=== PATIENT | male | born 1955 | race Caucasian/White ===

== ENCOUNTER 2019-06-09 07:47 | Inpatient (IN) ==
--- NOTE | 2019-06-09 07:54 | Emergency Department Note ---
Disposition Clinical Impression: Chest pain Qualifiers: Chest pain type: chest pain due to myocardial ischemia Ischemic chest pain type: unstable angina pectoris Qualified Code(s): I20.0 - Unstable angina CAD (coronary artery disease) Qualifiers: Coronary Disease-Associated Artery/Lesion type: [place] artery [place] vs. transplanted heart: [place] heart Associated angina: with unstable angina Qualified Code(s): I25.110 - Atherosclerotic heart disease of [place] coronary artery with unstable angina pectoris Disposition: Admitted As Inpatient Condition: Fair Time of Disposition: 07:07 General Adult HPI - General Chief complaint: ED Chest Pain Stated complaint: MOODY chest pain Time Seen by Provider: 06/09/19 07:51 - Related Data Home Medications Medication Instructions Recorded Confirmed Albuterol Sulfate [Proventil 2 puff IH Q4HR PRN 05/17/19 06/09/19 Inhaler] Aspirin [Lo-Dose Aspirin EC] 81 mg PO DAILY 05/17/19 06/09/19 Atorvastatin Calcium [Lipitor] 80 mg PO HS 05/17/19 06/09/19 BuPROPion XL (24 HR) [Wellbutrin 150 mg PO DAILY 05/17/19 06/09/19 XL] Citalopram Hydrobromide 40 mg PO DAILY 05/17/19 06/09/19 [Citalopram HBr] LORazepam [Lorazepam] 2 mg PO TID PRN 05/17/19 06/09/19 Previous Rx's Medication Instructions Recorded Docusate [Colace] 100 mg PO BID #60 capsule 05/17/19 Allergies Allergy/AdvReac Type Severity Reaction Status Date / Time amlodipine [From Norvasc] AdvReac Dizziness Verified 06/09/19 16:53 nitroglycerin AdvReac Hypotension Verified 06/09/19 16:53 Past Medical History - Past Medical History Medical history: Reports: myocardial infarction, other Surgical history: Reports: herniorrhaphy, other Psychiatric history: Reports: no psych history - Social History Smoking Status: Current every day smoker Smokeless Tobacco Status: No Alcohol use: Reports: none Drug use: Reports: none Course Vital Signs Temperature 97.5 F L 06/09/19 07:50 Pulse Rate 57 06/09/19 07:50 Respiratory Rate 18 06/09/19 07:50 Blood Pressure 97/75 06/09/19 07:50 O2 Sat by Pulse Oximetry 100 06/09/19 07:50 Temperature 98.6 F 06/10/19 03:29 Pulse Rate 65 06/10/19 03:29 Respiratory Rate 14 06/10/19 03:29 Blood Pressure 98/60 06/10/19 03:29 O2 Sat by Pulse Oximetry 97 06/10/19 03:29 Oxygen Delivery Oxygen Delivery Room Air Medical Decision Making - Lab Data Result diagrams: 06/10/19 02:32 06/10/19 02:32 Lab Results 06/09/19 06/09/19 06/09/19 Range/Units 08:07 08:07 08:07 WBC 7.4 (4.3-11.1) K/mcL RBC 4.71 (4.19-5.50) M/mcL Hgb 14.9 (12.9-16.9) g/dL Hct 44.2 (37.5-50.1) % MCV 93.8 (83.0-100.0) fL MCH 31.6 (28.0-33.3) pg MCHC 33.7 (31.6-35.5) g/dL RDW 12.9 (11.5-14.5) % Plt Count 229 (140-400) K/mcL MPV 9.2 L (9.4-12.4) fL Immature Gran % 0.3 (0-4) % Seg Neutrophils % 63.9 % Lymphocytes % 20.9 % Monocytes % 10.1 % Eosinophils % 4.3 % Basophils % 0.5 % Neutrophils # 4.7 (1.6-8.9) K/mcL Lymphocytes # 1.6 (0.6-4.6) K/mcL Monocytes # 0.8 (0.0-1.3) K/mcL Eosinophils # 0.3 (0.0-0.6) K/mcL Basophils # 0.0 (0.0-0.2) K/mcL PT (9.4-12.1) Seconds INR APTT 34.7 (26.0-36.0) Seconds Sodium 135 L (136-145) mEq/L Potassium 3.7 (3.5-5.1) mEq/L Chloride 106 (98-107) mEq/L Carbon Dioxide 26 (23-29) mEq/L BUN 10 (8-23) mg/dL Creatinine 0.86 (0.70-1.30) mg/dL Est GFR ( Amer) > 60 (> 60) Est GFR (Non-Af Amer) > 60 (> 60) BUN/Creatinine Ratio 12 (6-26) Glucose 89 (70-105) mg/dL Calculated Osmolality 279 L (280-300) Lactic Acid (0.5-2.2) mmol/L Calcium 9.0 (8.6-10.3) mg/dL Magnesium 2.2 (1.6-2.6) mg/dL Troponin I (< 0.04) ng/mL Lipase 22 (11-82) Units/L TSH (0.340-5.600) mcIU/mL Urine Color (Yellow) Urine Clarity (Clear) Urine pH (5.0-8.0) pH Units Ur Specific [place] (1.010-1.025) Urine Protein (Neg-Trace) mg/dL Urine Glucose (UA) (Normal) mg/dL Urine Ketones (Negative) mg/dL Urine Blood (Negative) Urine Nitrite (Negative) Urine Bilirubin (Negative) Urine Urobilinogen (Normal) mg/dL Ur Leukocyte Esterase (Negative) Urine Microscopic RBC (0-3) per hpf Urine Microscopic WBC (0-3) per hpf Ur Squamous Epith Cells (None-Few) per lpf Urine Bacteria (None-Few) per hpf Hyaline Casts (None-Few) per lpf Ur Culture Indicated? (NO) 06/09/19 06/09/19 06/09/19 Range/Units 08:07 08:07 08:07 WBC (4.3-11.1) K/mcL RBC (4.19-5.50) M/mcL Hgb (12.9-16.9) g/dL Hct (37.5-50.1) % MCV (83.0-100.0) fL MCH (28.0-33.3) pg MCHC (31.6-35.5) g/dL RDW (11.5-14.5) % Plt Count (140-400) K/mcL MPV (9.4-12.4) fL Immature Gran % (0-4) % Seg Neutrophils % % Lymphocytes % % Monocytes % % Eosinophils % % Basophils % % Neutrophils # (1.6-8.9) K/mcL Lymphocytes # (0.6-4.6) K/mcL Monocytes # (0.0-1.3) K/mcL Eosinophils # (0.0-0.6) K/mcL Basophils # (0.0-0.2) K/mcL PT 12.2 H (9.4-12.1) Seconds INR 1.1 APTT (26.0-36.0) Seconds Sodium (136-145) mEq/L Potassium (3.5-5.1) mEq/L Chloride (98-107) mEq/L Carbon Dioxide (23-29) mEq/L BUN (8-23) mg/dL Creatinine (0.70-1.30) mg/dL Est GFR ( Amer) (> 60) Est GFR (Non-Af Amer) (> 60) BUN/Creatinine Ratio (6-26) Glucose (70-105) mg/dL Calculated Osmolality (280-300) Lactic Acid 1.8 (0.5-2.2) mmol/L Calcium (8.6-10.3) mg/dL Magnesium (1.6-2.6) mg/dL Troponin I < 0.03 (< 0.04) ng/mL Lipase (11-82) Units/L TSH 4.464 (0.340-5.600) mcIU/mL Urine Color (Yellow) Urine Clarity (Clear) Urine pH (5.0-8.0) pH Units Ur Specific [place] (1.010-1.025) Urine Protein (Neg-Trace) mg/dL Urine Glucose (UA) (Normal) mg/dL Urine Ketones (Negative) mg/dL Urine Blood (Negative) Urine Nitrite (Negative) Urine Bilirubin (Negative) Urine Urobilinogen (Normal) mg/dL Ur Leukocyte Esterase (Negative) Urine Microscopic RBC (0-3) per hpf Urine Microscopic WBC (0-3) per hpf Ur Squamous Epith Cells (None-Few) per lpf Urine Bacteria (None-Few) per hpf Hyaline Casts (None-Few) per lpf Ur Culture Indicated? (NO) 06/09/19 Range/Units 09:55 WBC (4.3-11.1) K/mcL RBC (4.19-5.50) M/mcL Hgb (12.9-16.9) g/dL Hct (37.5-50.1) % MCV (83.0-100.0) fL MCH (28.0-33.3) pg MCHC (31.6-35.5) g/dL RDW (11.5-14.5) % Plt Count (140-400) K/mcL MPV (9.4-12.4) fL Immature Gran % (0-4) % Seg Neutrophils % % Lymphocytes % % Monocytes % % Eosinophils % % Basophils % % Neutrophils # (1.6-8.9) K/mcL Lymphocytes # (0.6-4.6) K/mcL Monocytes # (0.0-1.3) K/mcL Eosinophils # (0.0-0.6) K/mcL Basophils # (0.0-0.2) K/mcL PT (9.4-12.1) Seconds INR APTT (26.0-36.0) Seconds Sodium (136-145) mEq/L Potassium (3.5-5.1) mEq/L Chloride (98-107) mEq/L Carbon Dioxide (23-29) mEq/L BUN (8-23) mg/dL Creatinine (0.70-1.30) mg/dL Est GFR ( Amer) (> 60) Est GFR (Non-Af Amer) (> 60) BUN/Creatinine Ratio (6-26) Glucose (70-105) mg/dL Calculated Osmolality (280-300) Lactic Acid (0.5-2.2) mmol/L Calcium (8.6-10.3) mg/dL Magnesium (1.6-2.6) mg/dL Troponin I (< 0.04) ng/mL Lipase (11-82) Units/L TSH (0.340-5.600) mcIU/mL Urine Color Dark Yellow (Yellow) Urine Clarity Cloudy A (Clear) Urine pH 8.0 (5.0-8.0) pH Units Ur Specific [place] 1.015 (1.010-1.025) Urine Protein 30 H (Neg-Trace) mg/dL Urine Glucose (UA) Normal (Normal) mg/dL Urine Ketones Negative (Negative) mg/dL Urine Blood Large H (Negative) Urine Nitrite Negative (Negative) Urine Bilirubin Negative (Negative) Urine Urobilinogen Normal (Normal) mg/dL Ur Leukocyte Esterase Moderate H (Negative) Urine Microscopic RBC TNTC H (0-3) per hpf Urine Microscopic WBC 50-100 H (0-3) per hpf Ur Squamous Epith Cells Many H (None-Few) per lpf Urine Bacteria None Seen (None-Few) per hpf Hyaline Casts None Seen (None-Few) per lpf Ur Culture Indicated? YES A (NO) Attestation Statement - Attestation Attestation: I reviewed the residents documentation and agree with the residents assessment and plan of care. I have personally had face to face time with the patient. (Brief History, Brief Exam, and MDM) I personally supervised and was present for the bender/critical portions of the following procedures completed by the resident: (add procedures performed here). [id number] time provided Patient arrives by EMS complaining of chest pain. He recently stopped his Plav ix due to prostate instrumentation. Patient has an extensive cardiac history including CABG and stents. He appears distress on exam. I attest to supervising the resident physician's interpretation of ECG
--- NOTE | 2019-06-09 07:54 | Emergency Department Note ---
Disposition Clinical Impression: Chest pain Qualifiers: Chest pain type: chest pain due to myocardial ischemia Ischemic chest pain type: unstable angina pectoris Qualified Code(s): I20.0 - Unstable angina CAD (coronary artery disease) Qualifiers: Coronary Disease-Associated Artery/Lesion type: unspecified vessel or lesion type [place] vs. transplanted heart: [place] heart Associated angina: with unstable angina Qualified Code(s): I25.110 - Atherosclerotic heart disease of [place] coronary artery with unstable angina pectoris Disposition: Admitted As Inpatient Condition: Fair Forms: ED Satisfaction Letter Time of Disposition: 09:36 General Adult HPI - General Chief complaint: ED Chest Pain Stated complaint: MOODY chest pain Time Seen by Provider: 06/09/19 07:51 Nursing Notes Reviewed: Yes Vital Signs Reviewed: Yes - History of Present Illness HPI Narrative: 64-year-old male with history of CABG, recent prostatic surgery who presents the emergency department with complaints of chest pain, shortness of breath which started this morning. The patient states it was sudden onset while he was driving. He apparently took 2 nitroglycerin and this significantly improved his pain. Pain has resumed his chest. He states that it feels like a dullness in his lower chest and upper abdomen, similar to his previous episodes of [place] with the exception that this time it is radiating into bilateral arms. Patient denies any nausea, vomiting, diarrhea, back pain, peripheral edema. He has had issues with hematuria since his prostatic surgery and was told he should hold off on taking his Plavix by his urologist but is unsure if this is approved by his external relations manager. He is therefore been off his Plavix for 2-3 weeks. - Related Data Home Medications Medication Instructions Recorded Confirmed Albuterol Sulfate [Proventil 2 puff IH Q4HR PRN 05/17/19 06/09/19 Inhaler] Aspirin [Lo-Dose Aspirin EC] 81 mg PO DAILY 05/17/19 06/09/19 Atorvastatin Calcium [Lipitor] 80 mg PO HS 05/17/19 06/09/19 BuPROPion XL (24 HR) [Wellbutrin 150 mg PO DAILY 05/17/19 06/09/19 XL] Citalopram Hydrobromide 40 mg PO DAILY 05/17/19 06/09/19 [Citalopram HBr] LORazepam [Lorazepam] 2 mg PO TID PRN 05/17/19 06/09/19 Previous Rx's Medication Instructions Recorded Docusate [Colace] 100 mg PO BID #60 capsule 05/17/19 Allergies Allergy/AdvReac Type Severity Reaction Status Date / Time amlodipine [From [facility]] Allergy Dizziness Unverified 06/09/19 07:58 nitroglycerin AdvReac Hypotension Verified 06/09/19 07:58 Review of Systems: ROS per history of present illness, all other systems reviewed and negative or normal. All systems ED: reviewed and negative except as stated. Review of Systems: As Per HPI Past Medical History - Past Medical History Medical history: Reports: myocardial infarction, other Surgical history: Reports: herniorrhaphy, other Psychiatric history: Reports: no psych history - Social History Smoking Status: Current every day smoker Smokeless Tobacco Status: No Alcohol use: Reports: none Drug use: Reports: none Physical Exam General: Conversant. No apparent distress. Follow commands. Appears stated age. Neck: No JVD. Trachea midline. Neck supple. Eyes: PERRL. No scleral icterus. HENT: Normocephalic and atraumatic. Moist mucus membranes. Cardiovascular: Regular rate and rhythm. Normal S1 and S2. No murmurs appreci ated. Normal capillary refill. Extremities well perfused with 2+ distal pulses bilaterally. No edema. Pulmonary: Normal and equal breath sounds bilaterally, anteriorly and posteriorly. No wheezes, rales, or rhonchi. Not in respiratory distress. Speaks in full sentences. Abdomen: Soft, nondistended, and tontender. No bruits or masses. No guarding. Neuro: Alert and oriented x3. No slurred speech. No focal deficits noted. Skin: No rashes noted on visualized skin. Musculoskeletal: No bony abnormalities visualized. Moves all extremities. Psych: Normal mood. Pleasant. Makes appropriate eye contact. Course - Consultations Consultation #1: Spoke with external relations manager, Dr. Joseph would recommend starting heparin drip unless urine shows significant hematuria given hemoglobin has remained stable since prostate surgery. Time: 09:53 Vital Signs Temperature 97.5 F L 06/09/19 07:50 Pulse Rate 57 06/09/19 07:50 Respiratory Rate 18 06/09/19 07:50 Blood Pressure 97/75 06/09/19 07:50 O2 Sat by Pulse Oximetry 100 06/09/19 07:50 Temperature 97.5 F L 06/09/19 07:50 Pulse Rate 59 06/09/19 09:40 Respiratory Rate 16 06/09/19 09:40 Blood Pressure 94/70 06/09/19 09:40 O2 Sat by Pulse Oximetry 98 06/09/19 09:40 Oxygen Delivery Oxygen Delivery Room Air Medical Decision Making - MDM Narrative Medical decision making narrative: 64-year-old male with history of CAD, CABG who presents the emergency department with complaints of chest pain and shortness of breath. On arrival patient is hypotensive with systolic in the 90s, this is following 2 nitroglycerin. We will not repeat nitroglycerin given the patient's hypotension. He is otherwise well-appearing, lungs are clear to auscultation. He is saturating at 98% on room air. Given extensive cardiac history we will obtain CBC, BMP, troponin, coags, chest x-ray, EKG and urinalysis. On laboratory evaluation shows no significant leukocytosis or anemia. BMP shows no significant electrolyte abnormalities. Troponin 1 was 0.03. Chest x-ray shows slight left sided atelectasis vs scarring but no appreciable focal consolidation. Vital signs are remained stable here in the emergency departmen t, does remain borderline hypotensive but will continue to resuscitate with fluids. He has been unable to urinate but we will provide a sample to ensure there is no urinary tract infection. Given the patient has recently stopped taking Plavix and has significant cardiac history to believe he warrants inpatient admission for further cardiac evaluation. Discussed case with on-call hospitalist Dr. Price who agrees with plan for admission and accepts the patient to the inpatient service. She requests consultation with external relations manager prior to admission given he has recently been off plavix. Patient agrees with and understands course of treatment plan including plan for admission. All questions answered. - Medical Records Medical records reviewed: Yes I reviewed the patient's medical records. - Lab Data Lab results reviewed: Yes I reviewed the patient's lab results. Result diagrams: 06/09/19 08:07 06/09/19 08:07 Lab Results 06/09/19 06/09/19 06/09/19 Range/Units 08:07 08:07 08:07 WBC 7.4 (4.3-11.1) K/mcL RBC 4.71 (4.19-5.50) M/mcL Hgb 14.9 (12.9-16.9) g/dL Hct 44.2 (37.5-50.1) % MCV 93.8 (83.0-100.0) fL MCH 31.6 (28.0-33.3) pg MCHC 33.7 (31.6-35.5) g/dL RDW 12.9 (11.5-14.5) % Plt Count 229 (140-400) K/mcL MPV 9.2 L (9.4-12.4) fL Immature Gran % 0.3 (0-4) % Seg Neutrophils % 63.9 % Lymphocytes % 20.9 % Monocytes % 10.1 % Eosinophils % 4.3 % Basophils % 0.5 % Neutrophils # 4.7 (1.6-8.9) K/mcL Lymphocytes # 1.6 (0.6-4.6) K/mcL Monocytes # 0.8 (0.0-1.3) K/mcL Eosinophils # 0.3 (0.0-0.6) K/mcL Basophils # 0.0 (0.0-0.2) K/mcL PT (9.4-12.1) Seconds INR APTT 34.7 (26.0-36.0) Seconds Sodium 135 L (136-145) mEq/L Potassium 3.7 (3.5-5.1) mEq/L Chloride 106 (98-107) mEq/L Carbon Dioxide 26 (23-29) mEq/L BUN 10 (8-23) mg/dL Creatinine 0.86 (0.70-1.30) mg/dL Est GFR ( Amer) > 60 (> 60) Est GFR (Non-Af Amer) > 60 (> 60) BUN/Creatinine Ratio 12 (6-26) Glucose 89 (70-105) mg/dL Calculated Osmolality 279 L (280-300) Lactic Acid (0.5-2.2) mmol/L Calcium 9.0 (8.6-10.3) mg/dL Magnesium 2.2 (1.6-2.6) mg/dL Troponin I (< 0.04) ng/mL Lipase 22 (11-82) Units/L TSH (0.340-5.600) mcIU/mL 06/09/19 06/09/19 06/09/19 Range/Units 08:07 08:07 08:07 WBC (4.3-11.1) K/mcL RBC (4.19-5.50) M/mcL Hgb (12.9-16.9) g/dL Hct (37.5-50.1) % MCV (83.0-100.0) fL MCH (28.0-33.3) pg MCHC (31.6-35.5) g/dL RDW (11.5-14.5) % Plt Count (140-400) K/mcL MPV (9.4-12.4) fL Immature Gran % (0-4) % Seg Neutrophils % % Lymphocytes % % Monocytes % % Eosinophils % % Basophils % % Neutrophils # (1.6-8.9) K/mcL Lymphocytes # (0.6-4.6) K/mcL Monocytes # (0.0-1.3) K/mcL Eosinophils # (0.0-0.6) K/mcL Basophils # (0.0-0.2) K/mcL PT 12.2 H (9.4-12.1) Seconds INR 1.1 APTT (26.0-36.0) Seconds Sodium (136-145) mEq/L Potassium (3.5-5.1) mEq/L Chloride (98-107) mEq/L Carbon Dioxide (23-29) mEq/L BUN (8-23) mg/dL Creatinine (0.70-1.30) mg/dL Est GFR ( Amer) (> 60) Est GFR (Non-Af Amer) (> 60) BUN/Creatinine Ratio (6-26) Glucose (70-105) mg/dL Calculated Osmolality (280-300) Lactic Acid 1.8 (0.5-2.2) mmol/L Calcium (8.6-10.3) mg/dL Magnesium (1.6-2.6) mg/dL Troponin I < 0.03 (< 0.04) ng/mL Lipase (11-82) Units/L TSH 4.464 (0.340-5.600) mcIU/mL - Radiology Data Radiology results reviewed: Yes I reviewed the patient's radiology results. Chest X-Ray 06/09/19 07:51 IMPRESSION: Subsegmental atelectasis left lower lobe versus scarring. D/ / 06/09/2019 09:04:03 Jose Tinoco MD / Shelly Yañez Interpreting Provider: Jose Tinoco MD - EKG Data EKG #1 EKG attestation: Yes I reviewed and interpreted this EKG. EKG results narrative: Normal sinus rhythm rate of 56. Normal axis. Flat and T waves in aVR, aVL, aVF. Normal intervals. No acute ST or T-wave abnormalities. When compared w ith prior from 03/30/19 there are no significant changes.
[2019-06-09] MEDS ORDERED: 0.9 % Sodium Chloride 1,000 ML IVC STA ×2 (07:58→09:25)
[2019-06-09] MEDS ORDERED: *HR* FentaNYL (PF) 100 MCG/2 ML VIAL IVP ONE (07:59)
[2019-06-09 08:20] LABS: White Blood Count 7.4 K/mcL (4.3-11.1)
[2019-06-09 08:21] LABS: Basophils % 0.5 %; Eosinophils # 0.3 K/mcL (0.0-0.6); Eosinophils % 4.3 %; Hematocrit 44.2 % (37.5-50.1); Hemoglobin 14.9 g/dL (12.9-16.9); Immature Granulocytes % 0.3 % (0-4); Lymphocytes # 1.6 K/mcL (0.6-4.6); Lymphocytes % 20.9 %; Mean Corpuscular HGB Conc 33.7 g/dL (31.6-35.5); Mean Corpuscular Hemoglobin 31.6 pg (28.0-33.3); Mean Corpuscular Volume 93.8 fL (83.0-100.0); Mean Platelet Volume 9.2 fL (9.4-12.4); Monocytes # 0.8 K/mcL (0.0-1.3); Monocytes % 10.1 %; Neutrophils # 4.7 K/mcL (1.6-8.9); Platelet Count 229 K/mcL (140-400); Red Blood Count 4.71 M/mcL (4.19-5.50); Red Cell Distribution Width 12.9 % (11.5-14.5); Segmented Neutrophils % 63.9 %
[2019-06-09 08:30] LABS: INR 1.1; Prothrombin Time 12.2 Seconds (9.4-12.1)
[2019-06-09 08:40] LABS: BUN/Creatinine Ratio 12 (6-26); Blood Urea Nitrogen 10 mg/dL (8-23); Carbon Dioxide 26 mEq/L (23-29); Chloride 106 mEq/L (98-107); Glucose 89 mg/dL (70-105); Lipase 22 Units/L (11-82); Magnesium 2.2 mg/dL (1.6-2.6); Osmolality,Calculated 279 (280-300); Potassium 3.7 mEq/L (3.5-5.1); Sodium 135 mEq/L (136-145); eGFR For African Americans > 60 (> 60); eGFR For Non-African Americans > 60 (> 60)
[2019-06-09 08:43] LABS: Troponin I < 0.03 ng/mL (< 0.04)
[2019-06-09 08:57] LABS: Thyroid Stimulating Hormone 4.464 mcIU/mL (0.340-5.600)
[2019-06-09 10:06] LABS: Bilirubin,Urine Negative (Negative); Blood,Urine Large (Negative); Clarity,Urine Cloudy (Clear); Color,Urine Dark Yellow (Yellow); Glucose,Urine (UA) Normal (Normal); Ketones,Urine Negative (Negative); Leukocyte Esterase,Urine Moderate (Negative); Nitrite,Urine Negative (Negative); Protein,Urine 30 mg/dL (Neg-Trace); Specific Gravity,Urine 1.015 (1.010-1.025); Urobilinogen,Urine Normal (Normal)
[2019-06-09 10:08] LABS: Bacteria,Urine None Seen per hpf (None-Few); Hyaline Casts,Urine None Seen per lpf (None-Few); RBC,Urine TNTC per hpf (0-3); Squamous Epithelial Cell,Urine Many per lpf (None-Few); WBC,Urine 50-100 per hpf (0-3)
[2019-06-09] MEDS ORDERED: Naloxone 0.4 MG/ML INJ IVP PRN (10:59)
[2019-06-09] MEDS ORDERED: Ondansetron 4 MG/2 ML VIAL IVP PRN (10:59)
[2019-06-09] MEDS ORDERED: Acetaminophen 325 MG TABLET PO PRN (10:59)
--- NOTE | 2019-06-09 13:20 | Cardiology Consult Note ---
<Melina Swift Josesito - Last Filed: 06/09/19 13:33> Date of Encounter: 06/09/19 Time of Encounter: 13:00 Assessment and Plan (1) Chest pain Current Visit: Yes Status: Acute Patient presents with symptoms concerning for unstable angina. Initial troponin negative. No acute ECG findings. Pain free upon exam. Significant cardiac hx including 3v CABG and reports 12 stents since bypass. Last LHC 2-3 years ago. Recent abnormal stress test (equivocal): small size, moderate intensity reversible apical lateral defect. Request records from [facility]--prior LHC. Continue to cycle troponin, ECG. Continue asa. Will restart plavix now and monitor H/H given hematuria. Given chest pain and recent abnormal stress test would recommend LHC. Recommend Urology consult prior d/t hematuria. NPO after MN. Will continue to follow. Qualifiers: Chest pain type: chest pain due to myocardial ischemia Ischemic chest pain type: unstable angina pectoris Qualified Code(s): I20.0 - Unstable angina (2) CAD (coronary artery disease) Current Visit: Yes Status: Acute Hx of 3vCABG in 2001. Reports 12 stents s/p bypass surgery. Had previously followed with Dr. Hsu at [facility]. Plan as above. Qualifiers: Coronary Disease-Associated Artery/Lesion type: [place] artery Circle vs. transplanted heart: [place] heart Associated angina: with unstable angina Qualified Code(s): I25.110 - Atherosclerotic heart disease of [place] coronary artery with unstable angina pectoris (3) Hematuria Current Visit: Yes Status: Acute Hematuria s/p TURP on 05/17 despite holding DAPT (asa + plavix). H/H normal. UA demonstrates large amount of blood. Given need for possible LHC and DAPT, recommend Urology consult. Qualifiers: Hematuria type: unspecified type Qualified Code(s): R31.9 - Hematuria, unspecified Discussion w patient/family: The assessment and plan as outlined above was discussed with the patient and/or family members who expressed understanding and agreement. All questions were answered. Thank you for involving us in the care of your patient. Please call with any questions. The patient will be discussed and reviewed with Dr. Joseph; changes to be made accordingly. History of Present Illness Consult date: 06/09/19 Requesting physician: Yefri Farmer Consult reason: Chest pain Chief complaint: chest pain History of present illness: Mr. Garcia is a 64 year old male with PMHx significant of CAD s/p 3vCABG s/p PCI, HTN, and recent TURP on 05/17 who presented to the ED with complaints of chest pain. He reports chest discomfort started today while driving; chest discomfort described as pressure/heaviness that radiates to left neck and down bilateral arms. Associated symptoms included fatigue. He states he took x2 NTG tabs which improved pain; took a baby aspirin and then called EMS. EMS administered additional NTG which resolved pain. Troponin negative. No acute ST/T wave changes noted on ECG. Of note, recently stopped asa/plavix for TURP, resumed after surgery and developed hematuria, he then stopped medications again. Upon exam today, he reports continued hematuria. Previously followed with Dr. Hsu at [facility]. Past Med Surg Social Fam HX - Past Medical History Attestation: Yes The following information was validated with the patient. Source: patient Medical history: coronary artery disease, hyperlipidemia, hypertension, myocardial infarction, other Psychiatric history: anxiety, depression - Past Surgical History Surgical History: appendectomy, coronary bypass (CABG), vasectomy Additional surgical history: 12 cardiac stents, left foot - Social History Smoking Status: Former smoker Smokeless Tobacco Status: No Alcohol use: none Drug use: none - Family History Mother Age: 86 Living Status: Still Living Hx Family Cardiac Disorders: Yes (a-fib) Hx Family Neurologic Disorders: Yes (Alzheimers) Father Living Status: Age at : 42 Cause of : heart attack Hx Family Cardiac Disorders: Yes Medications and Allergies Albuterol Sulfate [Proventil Inhaler] 2 puff IH Q4HR PRN 05/17/19 [History] Aspirin [Lo-Dose Aspirin EC] 81 mg PO DAILY 05/17/19 [History] Atorvastatin Calcium [Lipitor] 80 mg PO HS 05/17/19 [History] BuPROPion XL (24 HR) [Wellbutrin XL] 150 mg PO DAILY 05/17/19 [History] Citalopram Hydrobromide [Citalopram HBr] 40 mg PO DAILY 05/17/19 [History] Docusate [Colace] 100 mg PO BID #60 capsule 05/17/19 [Rx] LORazepam [Lorazepam] 2 mg PO TID PRN 05/17/19 [History] Allergy/AdvReac Type Severity Reaction Status Date / Time amlodipine [From [facility]] AdvReac Dizziness Verified 06/09/19 16:53 nitroglycerin AdvReac Hypotension Verified 06/09/19 16:53 All Systems Review: The remainder of the systems were reviewed and are negative - Cardiovascular Cardiovascular: as per HPI Physical Examination Vital Signs, Last 4 Hours Temp Pulse Resp BP Pulse Ox 06/09/19 11:21 97.9 F 53 16 111/68 95 06/09/19 10:55 16 100 06/09/19 09:40 59 16 94/70 98 General: Conversant, No Apparent Distress HEENT: Atraumatic, Normocephaly, Mucus Membranes Moist Neck: No JVD, Normal carotid pulses Cardiac: Reg Rate and Rhythm, Normal S1 and S2, No Murmur Lungs: Normal Breath Sounds, No Wheeze, Rales, Rhonchi Neuro: Alert and responsive, No focal deficits noted Abdomen: Soft, Non-Tender Skin: No rashes noted on visualized skin Musculoskeletal: No Chest Wall Tenderness Extremities: No Clubbing, No Cyanosis, No Edema, Normal Pulses Results 06/09/19 08:07 06/09/19 08:07 Lab Results 06/09/19 06/09/19 06/09/19 08:07 08:07 08:07 WBC 7.4 Hgb 14.9 Hct 44.2 Plt Count 229 INR APTT 34.7 Sodium 135 L Potassium 3.7 Chloride 106 Carbon Dioxide 26 BUN 10 Creatinine 0.86 Glucose 89 Calcium 9.0 Magnesium 2.2 Troponin I Lipase 22 TSH 06/09/19 06/09/19 08:07 08:07 WBC Hgb Hct Plt Count INR 1.1 APTT Sodium Potassium Chloride Carbon Dioxide BUN Creatinine Glucose Calcium Magnesium Troponin I < 0.03 Lipase TSH 4.464 Active Medications Acetaminophen (Tylenol) 650 mg PO Q6HR PRN PRN Reason: Mild Pain/Fever Stop: 12/09/19 11:00 Hydrocodone Bitart/Acetaminophen ([place] 5-325 Mg) 1 tab PO Q6HR PRN PRN Reason: Moderate Pain Stop: 12/09/19 11:00 Albuterol Sulfate (Proventil Inhaler) 2 puff IH Q4HR PRN PRN Reason: Shortness Of Breath Stop: 12/09/19 11:01 Aspirin (Aspirin Ec) 81 mg PO DAILY [facility] Stop: 12/10/19 09:01 Atorvastatin Calcium (Lipitor) 80 mg PO HS [facility] Stop: 12/09/19 21:01 Bupropion HCl (Wellbutrin Xl) 150 mg PO DAILY [facility] Stop: 12/10/19 09:01 Citalopram Hydrobromide (Celexa) 40 mg PO DAILY [facility] Stop: 12/10/19 09:01 Clopidogrel Bisulfate (Plavix) 75 mg PO DAILY [facility] Stop: 12/09/19 14:01 Docusate Sodium (Colace) 100 mg PO BID PRN PRN Reason: Constipation Stop: 12/09/19 21:01 Lorazepam (Ativan) 2 mg PO TID PRN PRN Reason: Anxiety Naloxone HCl (Narcan) 0.4 mg IVP Q2MPRN PRN PRN Reason: SEE COMMENTS Stop: 12/09/19 11:00 Ondansetron HCl (Zofran) 4 mg IVP Q8HR PRN PRN Reason: Nausea And Vomiting Stop: 12/09/19 11:00 - Imaging and Cardiology Stress Test: report reviewed Echo: pending - EKG Interpretation EKG results cardiology: personally reviewed Consult Discharge Plan - Plan Referrals: Gerardo Vasquez MD [Primary Care Provider] - <Rozina Joseph - Last Filed: 06/09/19 22:21> Date of Encounter: 06/09/19 - Attending Attestation Patient was seen and evaluated independently by me. Findings, assessment and plan were discussed at length with patient, questions answered. Agree with nurse practitioner's/resident's documentation. Addition as follows, 64yoCM ho CABG, last PCI>1 yr, HTN, BPH. P/w chest pain lasting >30 mins resolved after NTG SL x3. DAPT held 2 wks due to hematuria 1 wk after Green light photo vaporization of prostate. ECG SR, NS STT. Trop negx1. VSS, CTA, RR, no LE edema. A: Chest pain, suspected ACS, moderate risk Hematuria after recent BPH procedure, Hb relatively stable CABG and PCI>1 yr, off DAPT 2 wks P: resume ASA and plavix cycle trop urology consult for heparin and DAPT, if no objection, start heparin drip possible [facility] am Rozina Joseph MD, PhD Assessment and Plan Discussion w patient/family: The assessment and plan as outlined above was discussed with the patient and/or family members who expressed understanding and agreement. All questions were answered. Thank you for involving us in the care of your patient. Please call with any questions. History of Present Illness History of present illness: Mr. Garcia is a 64 year old male All Systems Review: The remainder of the systems were reviewed and are negative Physical Examination Vital Signs, Last 4 Hours Temp Pulse Resp BP Pulse Ox 06/09/19 19:25 98.0 F 57 16 105/61 95 Results 06/09/19 18:23 06/09/19 08:07 Lab Results 06/09/19 06/09/19 06/09/19 08:07 08:07 08:07 WBC 7.4 Hgb 14.9 Hct 44.2 Plt Count 229 INR APTT 34.7 Sodium 135 L Potassium 3.7 Chloride 106 Carbon Dioxide 26 BUN 10 Creatinine 0.86 Glucose 89 Calcium 9.0 Magnesium 2.2 Troponin I Lipase 22 TSH 06/09/19 06/09/19 06/09/19 08:07 08:07 15:43 WBC Hgb Hct Plt Count INR 1.1 APTT Sodium Potassium Chloride Carbon Dioxide BUN Creatinine Glucose Calcium Magnesium Troponin I < 0.03 0.30 H* Lipase TSH 4.464 06/09/19 06/09/19 06/09/19 18:23 18:23 18:23 WBC 6.7 Hgb 14.0 Hct 41.9 Plt Count 214 INR 1.1 APTT 33.0 Sodium Potassium Chloride Carbon Dioxide BUN Creatinine Glucose Calcium Magnesium Troponin I Lipase TSH
--- NOTE | 2019-06-09 14:42 | Urology - Consult Note ---
<Mandy Mejias N - Last Filed: 06/09/19 14:39> Date of Encounter: 06/09/19 Time of Encounter: 14:00 - Assessment and Plan (1) Hematuria Current Visit: Yes Status: Acute Assessment and plan: Patient is a 64-year-old male who presents with hematuria following a greenlight PVP on 05/17/[address] Padron. Initially helped his anticoagulation preoperatively and resumed it postoperatively. Patient experienced recurrence of hematuria after resuming DAPT. Patient held anticoagulation after 05/28/2019, and urine is now clear. I explained to patient that he will likely resume anticoagulation per cardiology. He may continue to monitor his urine, and if gross hematuria returns, he may require an indwelling catheter. Urology will continue to follow. Qualifiers: Hematuria type: unspecified type Qualified Code(s): R31.9 - Hematuria, unspecified (2) Benign prostatic hyperplasia with lower urinary tract symptoms Current Visit: Yes Status: Acute Assessment and plan: Patient is a 64-year-old male who presents with BPH with LUTS. Patient is status post greenlight PVP on 05/17/2019. Patient's symptoms are as expected postoperatively. I will order a bladder scan in order to confirm adequate emptying. Qualifiers: Lower urinary tract symptom detail: urinary frequency Qualified Code(s): N40.1 - Benign prostatic hyperplasia with lower urinary tract symptoms; R35.0 - Frequency of micturition Urology CN:HPI Consult date: 06/09/19 Reason for consult Urology: Gross Hematuria (recent GreenLight PVP) Requesting physician: Rose Hart History of present illness: Patient is a 64-year-old male who presents status post greenlight photo vaporization of the prostate with Dr. Padron on 05/17/2019. Patient has a significant cardiac history including history of myocardial infarction, and he takes both Plavix and aspirin daily. Patient resumed anticoagulation posto peratively and experienced recurrence of hematuria. Patient called the urology office on 05/28/2019 stating hematuria had resolved after resuming anticoagulation. Patient was instructed to hold Plavix for 3 days. Patient continued to hold anticoagulation, and urine is now clear. Patient reports being off anticoagulation for approximately 2 weeks. Earlier this morning, while driving, patient experienced bilateral upper extremity pain radiating to the left lateral neck and substernal chest. Patient took 2 nitroglycerin without relief. Patient was given an additional nitroglycerin and aspirin by EMS staff and brought to the emergency department for further evaluation. Currently, patient is sitting upright in bed in no apparent distress, and he denies any chest pain, dyspnea, palpitations or weakness. Patient states he is voiding well without difficulty and feels as if he is emptying his bladder sufficiently. Patient does admit to continued urgency, frequency and nocturia. Patient states urine is now a transparent, dark yellow. Past Med Surg Social Fam HX - Past Medical History Medical history: coronary artery disease, hyperlipidemia, hypertension, myocardial infarction, other Psychiatric history: anxiety, depression - Past Surgical History Surgical History: appendectomy, coronary bypass (CABG), vasectomy Additional surgical history: 12 cardiac stents, left foot - Social History Smoking Status: Former smoker Smokeless Tobacco Status: No Alcohol use: none Drug use: none - Family History Mother Age: 86 Living Status: Still Living Hx Family Cardiac Disorders: Yes (a-fib) Hx Family Neurologic Disorders: Yes (Alzheimers) Father Living Status: Age at : 42 Cause of : heart attack Hx Family Cardiac Disorders: Yes Medications and Allergies Albuterol Sulfate [Proventil Inhaler] 2 puff IH Q4HR PRN 05/17/19 [History] Aspirin [Lo-Dose Aspirin EC] 81 mg PO DAILY 05/17/19 [History] Atorvastatin Calcium [Lipitor] 80 mg PO HS 05/17/19 [History] BuPROPion XL (24 HR) [Wellbutrin XL] 150 mg PO DAILY 05/17/19 [History] Citalopram Hydrobromide [Citalopram HBr] 40 mg PO DAILY 05/17/19 [History] Docusate [Colace] 100 mg PO BID #60 capsule 05/17/19 [Rx] LORazepam [Lorazepam] 2 mg PO TID PRN 05/17/19 [History] Allergy/AdvReac Type Severity Reaction Status Date / Time amlodipine [From [facility]] Allergy Dizziness Unverified 06/09/19 07:58 nitroglycerin AdvReac Hypotension Verified 06/09/19 07:58 Review of Systems - Constitutional no chills, no fatigue, no fever(s) - EENT Nose, mouth and throat: no dizziness, no headache(s) - Cardiovascular chest pain, diaphoresis, dyspnea, no palpitations - Respiratory dyspnea, no cough - Gastrointestinal nausea, no abdominal pain, no vomiting - Genitourinary nocturia, urinary frequency, urinary urgency, no change in urinary stream, no difficulty urinating, no dysuria, no flank pain, no hematuria, no urinary hesitancy, no urinary incontinence - Musculoskeletal no back pain, no muscle weakness - Integumentary no erythema, no rash - Neurological no confusion, no syncope - Psychiatric no anxiety, no confusion - Hematologic/Lymphatic no easy bleeding, no easy bruising - Allergic/Immunologic no throat swelling, no wheezing Exam Initial Vital Signs Temp Pulse Resp BP Pulse Ox 97.5 F L 57 18 97/75 100 06/09/19 07:50 06/09/19 07:50 06/09/19 07:50 06/09/19 07:50 06/09/19 07:50 - General physical appearance Present: no distress, no pain - Eyes Present: PERRL, normal ocular movement - ENT Present: no hearing loss, no congestion - Neck Present: no masses, trachea midline, no lymphadenopathy - Respiratory Present: normal respiratory effort - Cardiovascular Cardiovascular exam IM: RRR - Abdomen Abdomen: Present: soft, non tender. Absent: distended - Integumentary Present: no rash, no abnormal pigmentation - Neurologic Present: normal coordination - Musculoskeletal Present: other (normal posture ) Urology Results - Labs 06/09/19 08:07 06/09/19 08:07 Abnormal lab results MPV 9.2 fL (9.4-12.4) L 06/09/19 08:07 PT 12.2 Seconds (9.4-12.1) H 06/09/19 08:07 Sodium 135 mEq/L (136-145) L 06/09/19 08:07 Calculated Osmolality 279 (280-300) L 06/09/19 08:07 Urine Clarity Cloudy (Clear) A 06/09/19 09:55 Urine Protein 30 mg/dL (Neg-Trace) H 06/09/19 09:55 Urine Blood Large (Negative) H 06/09/19 09:55 Ur Leukocyte Esterase Moderate (Negative) H 06/09/19 09:55 Urine Microscopic RBC TNTC per hpf (0-3) H 06/09/19 09:55 Urine Microscopic WBC 50-100 per hpf (0-3) H 06/09/19 09:55 Ur Squamous Epith Cells Many per lpf (None-Few) H 06/09/19 09:55 Ur Culture Indicated? YES (NO) A 06/09/19 09:55 Diabetes panel 06/09/19 Range/Units 08:07 Sodium 135 L (136-145) mEq/L Potassium 3.7 (3.5-5.1) mEq/L Chloride 106 (98-107) mEq/L Carbon Dioxide 26 (23-29) mEq/L BUN 10 (8-23) mg/dL Creatinine 0.86 (0.70-1.30) mg/dL Glucose 89 (70-105) mg/dL Calcium 9.0 (8.6-10.3) mg/dL Thyroid panel 06/09/19 Range/Units 08:07 TSH 4.464 (0.340-5.600) mcIU/mL Calcium panel 06/09/19 Range/Units 08:07 Calcium 9.0 (8.6-10.3) mg/dL Pituitary panel 06/09/19 06/09/19 Range/Units 08:07 08:07 Sodium 135 L (136-145) mEq/L Potassium 3.7 (3.5-5.1) mEq/L Chloride 106 (98-107) mEq/L Carbon Dioxide 26 (23-29) mEq/L BUN 10 (8-23) mg/dL Creatinine 0.86 (0.70-1.30) mg/dL Glucose 89 (70-105) mg/dL Calcium 9.0 (8.6-10.3) mg/dL TSH 4.464 (0.340-5.600) mcIU/mL Adrenal panel 06/09/19 Range/Units 08:07 Sodium 135 L (136-145) mEq/L Potassium 3.7 (3.5-5.1) mEq/L Chloride 106 (98-107) mEq/L Carbon Dioxide 26 (23-29) mEq/L BUN 10 (8-23) mg/dL Creatinine 0.86 (0.70-1.30) mg/dL Glucose 89 (70-105) mg/dL Calcium 9.0 (8.6-10.3) mg/dL All other labs normal. Consult Discharge Plan - Plan Referrals: Gerardo Vasquez MD [Primary Care Provider] - <Humberto Bradshaw - Last Filed: 06/09/19 16:49> Date of Encounter: 06/09/19 Urology CN:SEVERIANO History of present illness: Patient was seen and examined in the family. I grabbed the plan as written by Mandy Mejias. At this time patient voiding well and states that his urine remains clear. We will be available if patient has to be started on significant anticoagulation as this could cause a worsening in his hematuria. Exam Initial Vital Signs Temp Pulse Resp BP Pulse Ox 97.5 F L 57 18 97/75 100 06/09/19 07:50 06/09/19 07:50 06/09/19 07:50 06/09/19 07:50 06/09/19 07:50 Urology Results - Labs 06/09/19 08:07 06/09/19 08:07 Abnormal lab results MPV 9.2 fL (9.4-12.4) L 06/09/19 08:07 PT 12.2 Seconds (9.4-12.1) H 06/09/19 08:07 Sodium 135 mEq/L (136-145) L 06/09/19 08:07 Calculated Osmolality 279 (280-300) L 06/09/19 08:07 Urine Clarity Cloudy (Clear) A 06/09/19 09:55 Urine Protein 30 mg/dL (Neg-Trace) H 06/09/19 09:55 Urine Blood Large (Negative) H 06/09/19 09:55 Ur Leukocyte Esterase Moderate (Negative) H 06/09/19 09:55 Urine Microscopic RBC TNTC per hpf (0-3) H 06/09/19 09:55 Urine Microscopic WBC 50-100 per hpf (0-3) H 06/09/19 09:55 Ur Squamous Epith Cells Many per lpf (None-Few) H 06/09/19 09:55 Ur Culture Indicated? YES (NO) A 06/09/19 09:55 Diabetes panel 06/09/19 Range/Units 08:07 Sodium 135 L (136-145) mEq/L Potassium 3.7 (3.5-5.1) mEq/L Chloride 106 (98-107) mEq/L Carbon Dioxide 26 (23-29) mEq/L BUN 10 (8-23) mg/dL Creatinine 0.86 (0.70-1.30) mg/dL Glucose 89 (70-105) mg/dL Calcium 9.0 (8.6-10.3) mg/dL Thyroid panel 06/09/19 Range/Units 08:07 TSH 4.464 (0.340-5.600) mcIU/mL Calcium panel 06/09/19 Range/Units 08:07 Calcium 9.0 (8.6-10.3) mg/dL Pituitary panel 06/09/19 06/09/19 Range/Units 08:07 08:07 Sodium 135 L (136-145) mEq/L Potassium 3.7 (3.5-5.1) mEq/L Chloride 106 (98-107) mEq/L Carbon Dioxide 26 (23-29) mEq/L BUN 10 (8-23) mg/dL Creatinine 0.86 (0.70-1.30) mg/dL Glucose 89 (70-105) mg/dL Calcium 9.0 (8.6-10.3) mg/dL TSH 4.464 (0.340-5.600) mcIU/mL Adrenal panel 06/09/19 Range/Units 08:07 Sodium 135 L (136-145) mEq/L Potassium 3.7 (3.5-5.1) mEq/L Chloride 106 (98-107) mEq/L Carbon Dioxide 26 (23-29) mEq/L BUN 10 (8-23) mg/dL Creatinine 0.86 (0.70-1.30) mg/dL Glucose 89 (70-105) mg/dL Calcium 9.0 (8.6-10.3) mg/dL All other labs normal.
[2019-06-09] MEDS: BuPROPion XL (24 HR) 150 MG TABLET PO SCH (14:58)
[2019-06-09] MEDS: *HR* LORazepam 1 MG TABLET PO PRN ×2 (14:58→21:50)
[2019-06-09] MEDS: Aspirin Enteric Coated 81 MG Tablet PO SCH (14:58)
--- NOTE | 2019-06-09 15:43 | Internal Med History&Physical ---
Date of Encounter: 06/09/19 Time of Encounter: 15:37 Internal Medicine - H&P: HPI Chief complaint: Chest pain Admitted From: Emergency Dept Plans for Post Hospital Care: Home History of present illness: Mr. Garcia is a 64 year old male with a known past medical history of hypertension, hyperlipidemia, anxiety, depression, former smoker, CAD s/p CABG and PCI and prostate problem who recently had Green light photo vaporization of prostate for BPH on 05/17/19 now he presented to ER with left chest wall pain. Patient stated he developed chest pain this morning while he was driving. His pain located at left chest wall region radiating to his left neck and left arm associated with some nausea. He also complained about feeling weak and lethargic. His chest pain improved with sublingual Nitro and baby aspirin. He denied any active chest pain now. In the ER his initial troponin was negative. His EKG did not show any acute ischemic changes. Off note resumed has been off off aspirin/Plavix since 05/28/19 since he developed hematuria after recent prostate greenlight PVP Past Med Surg Social Fam HX - Past Medical History Medical history: coronary artery disease, hyperlipidemia, hypertension, myocardial infarction, other Psychiatric history: anxiety, depression - Past Surgical History Surgical History: appendectomy, coronary bypass (CABG), vasectomy Additional surgical history: 12 cardiac stents, left foot - Social History Smoking Status: Former smoker Smokeless Tobacco Status: No Alcohol use: none Drug use: none - Family History Mother Age: 86 Living Status: Still Living Hx Family Cardiac Disorders: Yes (a-fib) Hx Family Neurologic Disorders: Yes (Alzheimers) Father Living Status: Age at : 42 Cause of : heart attack Hx Family Cardiac Disorders: Yes Internal Medicine - H&P: Meds Albuterol Sulfate [Proventil Inhaler] 2 puff IH Q4HR PRN 05/17/19 [History] Aspirin [Lo-Dose Aspirin EC] 81 mg PO DAILY 05/17/19 [History] Atorvastatin Calcium [Lipitor] 80 mg PO HS 05/17/19 [History] BuPROPion XL (24 HR) [Wellbutrin XL] 150 mg PO DAILY 05/17/19 [History] Citalopram Hydrobromide [Citalopram HBr] 40 mg PO DAILY 05/17/19 [History] Docusate [Colace] 100 mg PO BID #60 capsule 05/17/19 [Rx] LORazepam [Lorazepam] 2 mg PO TID PRN 05/17/19 [History] Allergy/AdvReac Type Severity Reaction Status Date / Time amlodipine [From [facility]] Allergy Dizziness Unverified 06/09/19 07:58 nitroglycerin AdvReac Hypotension Verified 06/09/19 07:58 All Systems PM: A 10-system review of systems was performed and is negative for pertinent findings except as documented above in the HPI. Review of systems: All the systems are reviewed everything is benign except the systems and symptoms I mentioned in the history of present illness - Constitutional Vitals: Temp Pulse Resp BP Pulse Ox 97.9 F 53 16 111/68 95 06/09/19 11:21 06/09/19 11:21 06/09/19 11:21 06/09/19 11:21 06/09/19 11:21 General appearance: Present: cooperative, A&O X 3, no acute distress Exam: a - Head Head exam: Present: atraumatic, normal inspection - Neck Neck exam general surgery: Present: supple - Respiratory Respiratory exam: Present: decreased breath sounds. Absent: rales, respiratory distress, rhonchi, wheezes - Cardiovascular Cardiovascular exam: Present: bradycardia, +S1, +S2. Absent: tachycardia - GI/Abdominal GI/Abdominal exam: Present: normal bowel sounds, soft. Absent: rebound, rigid, tenderness - Extremities Exam Extremities exam: Present: normal inspection. Absent: calf tenderness, pedal edema, tenderness - Back Exam Back exam: Absent: CVA tenderness (L), CVA tenderness (R) - Neurological Exam Neurological exam: Present: alert, oriented X3 - Psychiatric Psychiatric exam: Present: normal affect, normal mood - Skin Skin exam: Absent: rash Internal Med - H&P Results - Labs CBC & Chem 7: 06/09/19 08:07 06/09/19 08:07 Labs: Short CBC 06/09/19 Range/Units 08:07 WBC 7.4 (4.3-11.1) K/mcL Hgb 14.9 (12.9-16.9) g/dL Hct 44.2 (37.5-50.1) % Plt Count 229 (140-400) K/mcL Neutrophils # 4.7 (1.6-8.9) K/mcL BMP 08/07/19 08:07 Sodium 135 L Potassium 3.7 Chloride 106 Carbon Dioxide 26 BUN 10 Creatinine 0.86 Glucose 89 Calcium 9.0 Cardiac Enzymes 06/09/19 Range/Units 08:07 Troponin I < 0.03 (< 0.04) ng/mL Urine 06/09/19 Range/Units 09:55 Urine Color Dark Yellow (Yellow) Urine Clarity Cloudy A (Clear) Urine pH 8.0 (5.0-8.0) pH Units Ur Specific [place] 1.015 (1.010-1.025) Urine Protein 30 H (Neg-Trace) mg/dL Urine Glucose (UA) Normal (Normal) mg/dL - Impressions ITS Impressions Chest X-Ray 06/09/19 07:51 IMPRESSION: Subsegmental atelectasis left lower lobe versus scarring. D/ / 06/09/2019 09:04:03 Jose Tinoco MD / Shelly Yañez Interpreting Provider: Jose Tinoco MD - Assessment and Plan (1) Chest pain Current Visit: Yes Status: Acute Assessment and plan: Will admit the pt into Tele for observation Will place pt on credit processor check serial troponin so far negative troponin EKG reviewed - no acute ischemic changes Started pt back on ASA + Plavix No BB on board due to his chronic bradycardia Will check FLP in AM Card consulted possible LHC in AM NPO after mid night Qualifiers: Chest pain type: chest pain due to myocardial ischemia Ischemic chest pain type: unstable angina pectoris Qualified Code(s): I20.0 - Unstable angina (2) CAD (coronary artery disease) Current Visit: Yes Status: Acute Assessment and plan: resumed all home meds Qualifiers: Coronary Disease-Associated Artery/Lesion type: ili[place]na artery [place] vs. transplanted heart: iliamna heart Associated angina: with unstable angina Qualified Code(s): I25.110 - Atherosclerotic heart disease of [place] coronary artery with unstable angina pectoris (3) Benign prostatic hyperplasia with lower urinary tract symptoms Current Visit: Yes Status: Acute Assessment and plan: recent Green light PVP still has some hematuria consulted Urology - since he does need to be on DAPT appreciate urology recommendations cont close monitoring of H / H Qualifiers: Lower urinary tract symptom detail: urinary frequency Qualified Code(s): N40.1 - Benign prostatic hyperplasia with lower urinary tract symptoms; R35.0 - Frequency of micturition (4) Hematuria Current Visit: Yes Status: Acute Assessment and plan: plan as above Qualifiers: Hematuria type: unspecified type Qualified Code(s): R31.9 - Hematuria, unspecified (5) Anxiety Current Visit: Yes Status: Acute Assessment and plan: Continue home medications (6) HLD (hyperlipidemia) Current Visit: Yes Status: Acute Assessment and plan: On Lipitor 80 mg Qualifiers: Hyperlipidemia type: unspecified Qualified Code(s): E78.5 - Hyperlipidemia, unspecified - Time Spent With Patient Total time spent is greater than 50% in coordination of care (as documented) at patient's floor/unit and/or counseling patient:
[2019-06-09] MEDS ORDERED: *HR* Heparin 5,000 UNIT/ML VIAL IVP PRN ×2 (18:16)
[2019-06-09] MEDS ORDERED: *HR* Heparin 5,000 UNIT/ML VIAL IVP ONE (18:16)
--- NOTE | 2019-06-09 18:28 | Electrocardiograph Report ---
[facility] Test Date: 2019-06-09 Pat Name: Chucho Garcia Department: [id number] Room: 3B49 Gender: M Touch Up Worker: : 1955 Requested By: Gely Chong Order Number: [id number] Reading MD: Gianni Fox Measurements Intervals [place] Rate: 56 P: 78 RI: 165 QRS: 86 QRSD: 124 T: 43 QT: 460 QTc: 444 Interpretive Statements Sinus rhythm Nonspecific intraventricular conduction delay Electronically Signed On 06-09-2019 18:27:02 EDT by Gianni Fox
[2019-06-09] MEDS ORDERED: Heparin 25,000 UNIT/250 ML D5W 25,000 UNIT/250 ML IV.SOLN IVC SCH (18:30)
[2019-06-09 18:40] LABS: Hematocrit 41.9 % (37.5-50.1); Mean Corpuscular HGB Conc 33.4 g/dL (31.6-35.5); Mean Corpuscular Hemoglobin 31.4 pg (28.0-33.3); Mean Corpuscular Volume 93.9 fL (83.0-100.0); Mean Platelet Volume 9.2 fL (9.4-12.4); Platelet Count 214 K/mcL (140-400); Red Blood Count 4.46 M/mcL (4.19-5.50); Red Cell Distribution Width 12.8 % (11.5-14.5); White Blood Count 6.7 K/mcL (4.3-11.1)
[2019-06-09 18:53] LABS: Heparin anti-factor XA UFH 0.01 IU/mL (0.30-0.70); INR 1.1; Prothrombin Time 12.1 Seconds (9.4-12.1)
[2019-06-10 02:42] LABS: Hematocrit 40.9 % (37.5-50.1); Hemoglobin 13.9 g/dL (12.9-16.9); Platelet Count 211 K/mcL (140-400); Red Blood Count 4.35 M/mcL (4.19-5.50); Red Cell Distribution Width 12.8 % (11.5-14.5); White Blood Count 7.2 K/mcL (4.3-11.1)
[2019-06-10 03:03] LABS: BUN/Creatinine Ratio 13 (6-26); Blood Urea Nitrogen 11 mg/dL (8-23); Calcium 8.4 mg/dL (8.6-10.3); Carbon Dioxide 24 mEq/L (23-29); Chloride 107 mEq/L (98-107); Chol/HDL Ratio 3.4 (0-4.9); Cholesterol 78 mg/dL (< 200); Glucose 105 mg/dL (70-105); HDL Cholesterol 23 mg/dL (40-59); LDL Cholesterol,Calculated 42 mg/dL (0-99); Osmolality,Calculated 284 (280-300); Sodium 137 mEq/L (136-145); Triglycerides 66 mg/dL (< 150); eGFR For African Americans > 60 (> 60); eGFR For Non-African Americans > 60 (> 60)
[2019-06-10] MEDS: BuPROPion XL (24 HR) 150 MG TABLET PO SCH (08:21)
[2019-06-10] MEDS: *HR* LORazepam 1 MG TABLET PO PRN ×2 (08:21→20:41)
--- NOTE | 2019-06-10 08:29 | Event Note ---
Date of Encounter: 06/10/19 Time of Encounter: 08:28 - Cardiology Event Note NSTEMI. Initial troponin negative, then 0.30, 0.39, 0.32. Urology consult reviewed. Will plan for [facility] today. R/B/A discussed. Pt agreeable to proceed. H&H stable. HAS-BLED Score - Score Medication usage predisposing to bleeding: Antiplatelet agents, NSAIDs, Anticoagulants Score: 1
[2019-06-10] MEDS ORDERED: Aspirin Enteric Coated 81 MG Tablet PO SCH (09:00)
[2019-06-10] MEDS ORDERED: BuPROPion XL (24 HR) 150 MG TABLET PO SCH (09:00)
--- NOTE | 2019-06-10 10:59 | Pre-Sedation Evaluation ---
Pre-sedation evaluation - Pre-sedation checklist Date of procedure: 06/10/19 Procedure: [facility] Recent Vitals: Last Vital Signs Temp 97.9 F 06/10/19 07:47 Pulse 59 06/10/19 07:47 Resp 16 06/10/19 07:47 BP 101/63 06/10/19 07:47 Pulse Ox 94 06/10/19 07:47 H&P (including ROS) documented in medical record: Yes Previous reaction to sedatives/anesthetics: No Dietary Status: NPO after Midnight Dentition: No loose teeth or bridges, dentures removed Possible difficult airway: No ASA Classification *see protocol: CLASS II-Mild systemic disease Plan of Care: Pt appropriate candidate for procedure/moderate/conscious sedation Cardiac Registry (Cardio Only) - Functional Capacity Functional Capacity: >=4 METS with symptoms - Clincal Frailty Scale Clinical Frailty Scale: Well
[2019-06-10] MEDS ORDERED: *HR* Heparin 10,000 UNIT/10 ML VIAL ONE (11:02)
[2019-06-10] MEDS ORDERED: 0.9 % Sodium Chloride 1,000 ML ONE (11:02)
[2019-06-10] MEDS ORDERED: Heparin 1,000 UNITS/500 mL 500 ML ONE (11:02)
[2019-06-10] MEDS ORDERED: ISOVUE-370 200 ML INFUS..BTL ONE (11:02)
[2019-06-10] MEDS ORDERED: Nitroglycerin 1,000 MCG/10 ML VIAL IV ONE (11:02)
[2019-06-10] MEDS ORDERED: Verapamil 5 MG/2 ML VIAL ONE (11:07)
[2019-06-10] MEDS ORDERED: *HR* Midazolam HCl 2 MG/2 ML VIAL ONE (11:07)
[2019-06-10] MEDS ORDERED: Ondansetron 4 MG/2 ML VIAL ONE (11:26)
--- NOTE | 2019-06-10 12:02 | Event Note ---
Date of Encounter: 06/10/19 Time of Encounter: 12:01 - Cardiology Event Note Cath Completed LVEF 45% with anterior hypokinesis RCA midl disease LCA restenosis of lad stents. 80-85% PTCA of previous stents successful. circ occluded LEHMAN to LAD occluded radial artery graft to circ patent. Perclose right femoral artery. Recommend DAPT risk factor modification.
[2019-06-10] MEDS: Aspirin Enteric Coated 81 MG Tablet PO SCH (12:04)
--- NOTE | 2019-06-10 12:23 | Invasive Diagnostic Lab Proc ---
Name: Chucho Garcia Date of Study: 06/10/2019 Date: 1955 Ht: 74.0in Medical Record#: [id number] Age: 64 Wt: 211.64lb Gender: Male BSA: 2.23 Order #: [id number] BMI: 27.16 Physicians Procedure Physician: Ronnie Morgan MD Referring MD: Referring MD: Staff Name Position Time In Nuno Andrade RT (R) Scrub 11:06 AM Parish Loredo RN Monitor 11:06 AM Jose Humphries RN Tube Backer 11:07 AM Pham Mansfield RT (R) orientee with monitor 11:07 AM Procedures Performed Procedure L HRT ART/GRFT ANGIO PRQ CARDIAC ANGIOPLAST 1 ART Pre-Procedure Checklist Pt not NPO for procedure and MD aware. Blood Pressure: 101/63 Plan of Care Patient will tolerate the procedure without complications. Adequate level of comfort will be maintained. Hemodynamics will remain stable Patient will recover from procedure without complications. Respiratory function will be maintained. Cardiac rhythm will remain stable. Patient temperature will be maintained. Patient and/or family have verbalized understanding of the procedure. Patient Education Chief Complaint/Reason for Test: Cardiac Cath Developmental Category: Adult (18-64 years) Developmentally Appropriate for Age: Yes Learning Barriers: None Education Needs: Procedure Education Method: Verbal Information Taught: Cardiac Cath Educational Evaluation: Able to repeat information Intravenous Access Time IV Size Location DC'd Fluid/Drip Rate Units RN 09:06 AM 18g 1 1/4" Patent On Arrival Lt Antecubital Allergies amlodipine nitroglycerin Vital Signs Time BP (mmHg) HR (bpm) O2 Sat. RR (bpm) LOC 09:06 AM 101 / 63 59 94 % 16 5 = Fully awake and oriented or at pre-proc level 11:17 AM / % 5 = Fully awake and oriented or at pre-proc level 11:17 AM / % 4 = Oriented but drowsy 11:32 AM / % 4 = Oriented but drowsy 11:16 AM 118 / 73 53 98 % 16 11:21 AM 114 / 68 59 96 % 11 11:26 AM 120 / 87 70 98 % 12 11:31 AM 118 / 67 59 92 % 13 11:36 AM 119 / 73 67 95 % 18 11:41 AM 99 / 63 68 93 % 13 11:46 AM 106 / 63 66 94 % 13 11:51 AM 110 / 71 67 95 % 11 Procedural Medications Time Medication Dose Units Method Given By 11:10 AM 0.9NaCl 20 ml/hr Intravenous 11:16 AM Versed 2 mg Intravenous Jose Humphries RN 11:21 AM Lidocaine 2% 10 ml Subcutaneous Ronnie Morgan MD 11:22 AM Lidocaine 2% 10 ml Subcutaneous Ronnie Morgan MD 11:27 AM Zofran 4 mg Intravenous Jose Humphries RN 11:37 AM Heparin 5000 units Intravenous Jose Humphries RN 11:40 AM Nitroglycerin 200 mcg Intracoronary Ronnie Morgan MD 11:58 AM Plavix 300 mg Orally Jose Humphries RN ASA Classification: CLASS II- Mild systemic disease (i.e. well-controlled diabetes, hypertension, asthma, cigarette smoking) Gustabo Score Preprocedure Postprocedure Activity 2- Moves 4 extremities sustained head lift Activity 2- Moves 4 extremities sustained head lift Circulation 2- SBP +/= 20 points of pre-anesthetic level Circulation 2- SBP +/= 20 points of pre-anesthetic level Consciousness 2- Awake and alert oriented x 3 Consciousness 2- Awake and alert oriented x 3 O2 Saturation 2- Able to maintain O2 satruation of 92% on room air O2 Saturation 2- Able to maintain O2 satruation of 92% on room air Respiratory 2- Able to deep breathe and cough well Respiratory 2- Able to deep breathe and cough well Total Score 10 Total Score 10 Contrast Agent: Isovue Diagnostic Contrast: 150 ml Total Contrast: 150 ml Fluoro Dose: 52 mGy Procedure Log Time Note Enter By 11:06 AM Nuno Andrade RT (R) Position: Scrub Time in: : [facility] 11:06 AM Parish Loredo RN Position: Monitor Time in: : [facility] 11:07 AM Jose Humphries RN Position: Tube Backer [facility]: [facility] 11:07 AM Pham Mansfield RT (R) Position: orientee with monitor Time in: 11: [facility] 11:07 AM Patient charges- Angio tray pack, Navilyst 3mm J, Pulse Oximetry and ACIST tubing and transducer [facility] 11:10 AM Pt arrived to manufacturing lab technician 2 at 11:10 [facility] 11:10 AM Patient arrived at 11:10 with 0.9NaCl Intravenous drip @ 20 ml/hr [facility] 11:10 Physician arrived 11:10 [facility] 11:11 AM ASA Class CLASS II- Mild systemic disease (i.e. well-controlled diabetes, hypertension, asthma, cigarette smoking) [facility] 11:11 Meet and chelo completed [facility] 11:12 AM Sign in performed according to hospital policy. Informed consent was obtained. [facility] 11:14 AM Procedure start :14 [facility] 11:15 AM Vitals capture started with the following parameters, Patient=Adult, Interval=5 min, Initial Ntdocxrv=176 mmHg, Deflation Rate=3 mmHg, Cuff placed on Right Arm 11:16 AM Hair removed from procedure site in procedure lab using clippers. Right wrist and Right groin prepped with Chloraprep by Jose Humphries RN, then patient was draped. Skin intact. [facility] :16 Recorded ECG: HR=57 Condition=Condition 1 11:16 AM Time: :16 Versed 2 mg Intravenous Given by Jose Humphries RN [facility] :16 AM HR=53 bpm, AIHK=626/73 mmhg, SpO2=98.0 %, Resp=16 B/min, EtCO2=29 mmHg, Comment=NSR :17 AM Time: :17 Patient comfortable and pain free: Yes [facility] : AM Time: :LOC: 5 = Fully awake and oriented or at pre-proc level [facility] : CathStat : AM Pressure channel 2 zeroed. 11: AM HR=59 bpm, QXPT=509/68 mmhg, SpO2=96.0 %, Resp=11 B/min, EtCO2=31 mmHg, Comment=NSR : AM Time: : 10 ml Lidocaine 2% to right groin Subcutaneous Given by Ronnie Morgan MD [facility] : AM Access obtained by percutaneous puncture. 6Fr 10cm Terumo [place] sheath placed in right Femoral artery. [id number] [facility] : AM Time: 10 ml Lidocaine 2% to right groin Subcutaneous Given by Ronnie Morgan MD [facility] :23 AM 0.035 145cm Navilyst 3mmJ wire [id number] [facility] : AM 6Fr FR 4 catheter inserted over the wire [facility] 11:23 AM Recorded Pressure: Ao, HR=58, Condition=Condition 1 (Aorta) Ao 95/50/68 11:24 AM RCA angiography performed in multiple views. [facility]: Coronary Dominance: right [facility] : pt emesis-small amount [facility] : AM HR=70 bpm, SCFR=341/87 mmhg, SpO2=98.0 %, Resp=12 B/min, EtCO2=30 mmHg, Comment=NSR 11: AM Time: : Zofran 4 mg Intravenous Given by Jose Humphries RN [facility] 11: AM SVG to the 1st OM angio performed in multiple views. [facility] 11:30 AM Left ALYSIA to the LAD angio performed in multiple views. [facility]:30 AM Catheter removed [facility]: AM 6Fr FL 4 catheter inserted over the wire [facility] 11:31 AM HR=59 bpm, ESOP=472/67 mmhg, SpO2=92.0 %, Resp=13 B/min, Comment=NSR 11:32 AM Time: 11:17LOC: 4 = Oriented but drowsy [facility] :32 AM Time: 11:17 Patient comfortable and pain free: Yes [facility] :32 AM LCA angiography performed in multiple views. [facility] :32 AM Recorded Pressure: Ao, HR=61, Condition=Condition 1 (Aorta) Ao 98/51/71 11:32 AM Catheter removed [facility] 11:33 AM 6Fr Pigtail catheter inserted over the wire [facility] :33 AM Catheter crossed the aortic valve and was selectively placed in the left ventricle. Pressures recorded on pullback for left heart catheterization. [facility] 11:34 AM Recorded Pressure: LV, HR=75, Condition=Condition 1 (Left Ventricle) LV 119/2/13 11:34 AM Recorded Pressure: LV, HR=71, Condition=Condition 1 (Left Ventricle) LV 121/2/15 11:34 AM Bolus angiogram of left Ventricle complete: hand injection ml/sec for a total of mls [facility] 11:34 AM Recorded Pressure: LV, Ao, HR=81, Condition=Condition 1 (Left Ventricle) LV 102/-14/-26, (Aorta) Ao 114/60/85 11:35 AM Recorded Pressure: Ao, HR=65, Condition=Condition 1 (Aorta) Ao 113/59/82 11:36 AM HR=67 bpm, IYRU=913/73 mmhg, SpO2=95.0 %, Resp=18 B/min, Comment=NSR 11:37 AM Time: 11:37 Heparin 5000 units Intravenous Given by Jose Humphries RN 11:38 AM Catheter removed [facility] 11:38 AM 6Fr JL4 Cordis guide catheter was used to cannulate the PCI vessel successfully. reused? No [place] 11:39 AM .014 Balance 300cm guide wire across target lesion- successful. reused? No [place] 11:39 AM Inflation device was opened. [place] 11:39 AM 3.25 mm x 30mm NC Emerge balloon across target lesion- successful. reused? No [place] 11:40 AM Time: 11:40 Nitroglycerin 200 mcg Intracoronary Given by Ronnie Morgan MD [facility] 11:41 AM HR=68 bpm, NIBP=99/63 mmhg, SpO2=93.0 %, Resp=13 B/min 11:42 AM Recorded Pressure: Ao, HR=60, Condition=Condition 1 (Aorta) Ao 86/50/66 11:43 AM Balloon inflated @ 18 xiomara for 30 seconds [place] 11:44 AM Balloon inflated @ 18 xiomara for 20 seconds [facility] 11:46 AM 3.5 mm x 25mm NC Trek Rx balloon across target lesion- successful. reused? No [facility] 11:46 AM HR=66 bpm, HWEQ=321/63 mmhg, SpO2=94.0 %, Resp=13 B/min, Comment=NSR 11:46 AM Balloon catheter removed intact. [place] 11:47 AM Time: 11:32 Patient comfortable and pain free: Yes [facility] 11:47 AM Time: 11:32LOC: 4 = Oriented but drowsy [facility] 11:48 AM Balloon inflated @ 18 xiomara for 30 seconds [facility] 11:49 AM Balloon catheter removed intact. [facility] 11:50 AM Guide wire removed intact. [facility] 11:51 AM j[facility]ilton 11:51 AM Guide catheter removed intact. [facility] 11:51 AM HR=67 bpm, REOD=007/71 mmhg, SpO2=95.0 %, Resp=11 B/min 11:51 AM Bolus angiogram of right Femoral complete: hand injection ml/sec for a total of mls [facility] 11:52 AM Procedure completed at 11:52 06/10/2019 [facility] 11:54 AM Sign out completed: Radiation Dose 554.56 mGy, 52.1 Gy/cm2 Fluoro Time: 5.9 Isovue 370 - 200ml contrast 150 ml given by Ronnie Morgan MD. Complications: None. 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 Sedation minutes 36. Cardiac Rehab Consult needed: Yes. Confirmed administered medications: Yes [facility] 11:54 AM Isovue 370 - 200ml,1 Bottle(s) used. [facility] 11:54 AM Arterial sheath pulled, Perclose closure device used and was Successful [id number] S/N. [facility] 11:54 AM Estimated Blood Loss: minimal [facility] 11:54 AM Post ECG NSR [facility] 11:54 AM Post Blood Pressure 110/71 [facility] 11:55 AM Information taught Cardiac Cath, PCI, and Perclose [facility] 11:55 AM Education needs Procedure, Plan of Care, and Disease Process [facility] 11:55 AM Learning barriers :None [facility] 11:55 AM Education Methods Verbal [facility] 11:55 AM Education evaluation Able to repeat information [facility] 11:55 AM Site status No bleeding/ No Hematoma - Rt Groin as reported by Nuno Andrade RT (R) at 11:55 [facility] 11:55 AM Opsite applied [facility] 11:57 AM Vitals capture stopped. 11:59 AM Time: 11:58 Plavix 300 mg Orally Given by Jose Humphries RN [facility] 12:04 PM Plavix, Effient or Brilinta given Yes [facility] 12:04 Report given to Yesi CHU Pt taken to Room #49. 12:04 [facility] 12:04 PM Family placed in consult room. [facility] 12:04 PM Patient out of room: 12:04 [facility] 12:05 PM Lesion found in Proximal RCA. Pre Stenosis: 20 Pre GERMÁN Flow: [facility] 12:05 PM Lesion found in Mid RCA. Pre Stenosis: 55 Pre GERMÁN Flow: [facility] 12:05 PM Lesion found in Mid LAD. Pre Stenosis: 80 Pre GERMÁN Flow: [facility] 12:05 PM Lesion found in Proximal Circumflex. Pre Stenosis: 100 Pre GERMÁN Flow: percyton Complications Complication None Hemodynamics Pressures Site Systolic/A Wave Diastolic/V Wave Mean AO 95 50 68 AO 98 51 71 LV 119 2 13 LV 121 2 15 LV 102 -14 -26 AO 114 60 85 AO 113 59 82 AO 86 50 66 Post Procedure Information Blood Pressure: 110/71 mmHg Rhythm: NSR Site Checks Time Location Status Staff Sheath In? Note 11:55 AM Rt Groin No bleeding/ No Hematoma Nuno Andrade RT (R) Pulses Time Site Pre-Procedure Post-Procedure Note 06/10/2019 9:06:00 AM Bilateral DP 2+ 06/10/2019 9:06:00 AM Bilateral radial 2+ Updated by Pham Mansfield RT (R) on 06/10/2019 12:15:52 PM electronically signed on 06/10/2019 12:16:24 PM with status of Final
--- NOTE | 2019-06-10 13:42 | Internal Med Progress Note ---
Hospitalist Progress Note - Encounter Date of Encounter: 06/10/19 Time of Encounter: 13:40 - Subjective Interval History: Patient was seen and examined bedside. He just came back from [facility]. He denied any active chest pain now. - Exam Vitals: Temp Pulse Resp BP Pulse Ox 97.9 F 62 16 108/71 94 06/10/19 07:47 06/10/19 13:00 06/10/19 13:00 06/10/19 13:00 06/10/19 13:00 Exam: Gen: Alert, awake, Oriented to time,place and person Chest: Diminished breath sounds B/L, No wheezing, No crackles, No rales Heart: S1S2+ RRR No murmurs Abd: Soft, NT, BS +, No organomegaly Ext: No edema, pulses are palpable, No calf tenderness Neuro : No acute focal neuro deficits noticed Skin: No rash. - Assessment and Plan (1) NSTEMI (non-ST elevated myocardial infarction) Current Visit: Yes Status: Acute Assessment and Plan: His troponin trended up @ 0.39 he was started on heparin drip last night which we stopped now he does have type I NSTEMI s/p [facility] showed - LVEF 45% with anterior hypokinesis RCA midl disease LCA restenosis of lad stents. 80-85% PTCA of previous stents successful. circ occluded LEHMAN to LAD occluded Cont DAPT ( ASA + Pavix ) and Lipitor if his heart rate allows will start him on low-dose beta radha (2) Chest pain Current Visit: Yes Status: Acute Assessment and Plan: His troponin trended up @ 0.39 he was started on heparin drip last night. (3) CAD (coronary artery disease) Current Visit: Yes Status: Acute Assessment and Plan: Continue DAPT and Statin unable to start him on beta radha due to his low heart rate (4) Benign prostatic hyperplasia with lower urinary tract symptoms Current Visit: Yes Status: Acute Assessment and Plan: recent Green light PVP still has some hematuria consulted Urology - since he does need to be on DAPT appreciate urology recommendations no more active bleeding his hemoglobin stays stable continue close monitoring urology care him to start on DAPT (5) Hematuria Current Visit: Yes Status: Acute Assessment and Plan: plan as above (6) Anxiety Current Visit: Yes Status: Acute Assessment and Plan: Continue home medications (7) HLD (hyperlipidemia) Current Visit: Yes Status: Acute Assessment and Plan: On Lipitor 80 mg - Time Spent with Patient Total time spent is greater than 50% in coordination of care (as documented) at patient's floor/unit and/or counseling patient: Internal Medicine: Result - Labs CBC & Chem 7: 06/10/19 02:32 06/10/19 02:32 Labs: Short CBC 06/09/19 06/10/19 Range/Units 18:23 02:32 WBC 6.7 7.2 (4.3-11.1) K/mcL Hgb 14.0 13.9 (12.9-16.9) g/dL Hct 41.9 40.9 (37.5-50.1) % Plt Count 214 211 (140-400) K/mcL BMP 06/10/19 02:32 Sodium 137 Potassium 4.0 Chloride 107 Carbon Dioxide 24 BUN 11 Creatinine 0.84 Glucose 105 Calcium 8.4 L Cardiac Enzymes 06/09/19 06/09/19 06/10/19 Range/Units 15:43 21:35 02:32 Troponin I 0.30 H* 0.39 H* 0.32 H* (< 0.04) ng/mL - ABG Interpretation ABG results: PT/INR, D-dimer PT 12.1 Seconds (9.4-12.1) 06/09/19 18:23 Consult Discharge Plan - Plan Referrals: Gerardo Vasquez MD [Primary Care Provider] - (2) Chest pain Qualifiers: Chest pain type: chest pain due to myocardial ischemia Ischemic chest pain type: unstable angina pectoris Qualified Code(s): I20.0 - Unstable angina (3) CAD (coronary artery disease) Qualifiers: Coronary Disease-Associated Artery/Lesion type: [place] artery [place] vs. transplanted heart: [place] heart Associated angina: with unstable angina Qu alified Code(s): I25.110 - Atherosclerotic heart disease of [place] coronary artery with unstable angina pectoris (4) Benign prostatic hyperplasia with lower urinary tract symptoms Qualifiers: Lower urinary tract symptom detail: urinary frequency Qualified Code(s): N40.1 - Benign prostatic hyperplasia with lower urinary tract symptoms; R35.0 - Frequency of micturition (5) Hematuria Qualifiers: Hematuria type: unspecified type Qualified Code(s): R31.9 - Hematuria, unspecified (7) HLD (hyperlipidemia) Qualifiers: Hyperlipidemia type: unspecified Qualified Code(s): E78.5 - Hyperlipidemia, unspecified
[2019-06-10] MEDS: Isosorbide MONOnitrate (24 HR) 30 MG TAB.ER.24H PO SCH (14:52)
[2019-06-10 17:33] LABS: Hematocrit 40.2 % (37.5-50.1); Hemoglobin 13.7 g/dL (12.9-16.9)
[2019-06-10] MEDS: *HR* HYDROcodone/Acet 5/325 mg TABLET PO PRN (20:41)
--- NOTE | 2019-06-11 03:21 | Electrocardiograph Report ---
[facility] Test Date: 2019-06-09 Pat Name: Chucho Garcia Department: [id number] Room: 3B Gender: M Legal Analyst: : [id number] Requested By: Dex Crespo Order Number: [id number] Reading MD: Gianni Fox Measurements Intervals [place] Rate: 56 P: 78 [place]: 165 QRS: 86 QRSD: 124 T: 43 QT: 460 QTc: 444 Interpretive Statements Sinus rhythm Electronically Signed On 06-11-2019 3:20:04 EDT by Gianni Fox
[2019-06-11] MEDS: *HR* HYDROcodone/Acet 5/325 mg TABLET PO PRN (04:47)
[2019-06-11 06:04] LABS: Hematocrit 38.5 % (37.5-50.1)
[2019-06-11 06:06] LABS: Basophils % 0.5 %; Eosinophils # 0.3 K/mcL (0.0-0.6); Eosinophils % 3.6 %; Hematocrit 38.5 % (37.5-50.1); Immature Granulocytes % 0.4 % (0-4); Lymphocytes # 1.4 K/mcL (0.6-4.6); Mean Corpuscular HGB Conc 33.8 g/dL (31.6-35.5); Mean Corpuscular Hemoglobin 32.2 pg (28.0-33.3); Mean Corpuscular Volume 95.3 fL (83.0-100.0); Mean Platelet Volume 9.3 fL (9.4-12.4); Monocytes # 0.6 K/mcL (0.0-1.3); Monocytes % 8.5 %; Platelet Count 199 K/mcL (140-400); Red Blood Count 4.04 M/mcL (4.19-5.50); Red Cell Distribution Width 12.9 % (11.5-14.5); White Blood Count 7.4 K/mcL (4.3-11.1)
[2019-06-11 06:28] LABS: BUN/Creatinine Ratio 16 (6-26); Blood Urea Nitrogen 14 mg/dL (8-23); Calcium 8.6 mg/dL (8.6-10.3); Carbon Dioxide 23 mEq/L (23-29); Chloride 104 mEq/L (98-107); Glucose 97 mg/dL (70-105); Osmolality,Calculated 284 (280-300); Potassium 4.1 mEq/L (3.5-5.1); Sodium 137 mEq/L (136-145); eGFR For African Americans > 60 (> 60); eGFR For Non-African Americans > 60 (> 60)
[2019-06-11 06:30] LABS: BUN/Creatinine Ratio 16 (6-26); Blood Urea Nitrogen 15 mg/dL (8-23); Troponin I 0.12 ng/mL (< 0.04); eGFR For African Americans > 60 (> 60); eGFR For Non-African Americans > 60 (> 60)
[2019-06-11] MEDS ORDERED: Aspirin 81 MG TAB.CHEW PO SCH (09:00)
[2019-06-11] MEDS: Isosorbide MONOnitrate (24 HR) 30 MG TAB.ER.24H PO SCH (09:01)
[2019-06-11] MEDS: BuPROPion XL (24 HR) 150 MG TABLET PO SCH (09:01)
[2019-06-11] MEDS: *HR* LORazepam 1 MG TABLET PO PRN (09:04)
--- NOTE | 2019-06-11 09:22 | Cardiology Progress Note ---
Date of Encounter: 06/11/19 Time of Encounter: 09:18 Assessment and Plan (1) NSTEMI (non-ST elevated myocardial infarction) Current Visit: Yes Status: Acute Initial troponin negative, then 0.30, 0.39, 0.32, 0.12. S/P LHC yesterday severe three vessel CAD. EF 45%. Patient had successful PTCA in the mid LAD. S/P CABG 1 of 2 patent bypass grafts. Atretic velasco to lad. Previous stent in Left Anterior Descending with severe in-stent stenosis. DAPT (ASA and Plavix) uninterrupted. Pt verbalizes understanding. Continue statin. No BB d/t hypotension. Will stop Imdur. Pt states he was previously unable to tolerate imdur d/t hypotension. Reports hematuria yesterday, now improving. H&H stable. Discussed with hospitalist. Plans for urology follow-up outpt. Right femoral access site healing well. No bleeding or hematoma. Mild ecchymosis. Cardiology signing off. Reconsult PRN. Will coordinate outpt follow-up in 1 week. (2) CAD (coronary artery disease) Current Visit: Yes Status: Acute Hx of 3vCABG in 2001. Reports 12 stents s/p bypass surgery. Had previously followed with Dr. Hsu at [facility]. Plan as above. Qualifiers: Coronary Disease-Associated Artery/Lesion type: [place] artery [place] vs. transplanted heart: [place] heart Associated angina: with unstable angina Qualified Code(s): I25.110 - Atherosclerotic heart disease of [place] coronary a rtery with unstable angina pectoris (3) Hematuria Current Visit: Yes Status: Acute Hematuria s/p TURP on 05/17 despite holding DAPT (asa + plavix). H/H normal. UA demonstrated large amount of blood. Seen by urology. Noted that if gross hematuria returns, he may require an indwelling catheter. Discussed with hospitalist. Report of gross hematuria yesterday, now improving. Discussed with hospitalist. Plan for outpt urology f/ up. Qualifiers: Hematuria type: unspecified type Qualified Code(s): R31.9 - Hematuria, unspecified Discussion w patient/family: The assessment and plan as outlined above was discussed with the patient and/or family members who expressed understanding and agreement. All questions were answered. Thank you for involving us in the care of your patient. Please call with any questions. I will discuss all the above with Dr. Patricio and make changes as necessary. Subjective Principal diagnosis: NSTEMI Interval history: Pt denies chest pain or dyspnea. Reports he had hematuria after LHC yesterday, now improving. Objective Vital Signs, Last 4 Hours Temp Pulse Resp BP Pulse Ox 06/11/19 07:14 97.9 F 64 18 87/56 94 Vital Signs Temp Pulse Resp BP Pulse Ox 06/11/19 07:14 97.9 F 64 18 87/56 94 06/11/19 03:27 98.1 F 64 16 94/42 94 06/10/19 22:47 97.8 F 60 16 92/49 93 06/10/19 19:46 97.7 F 70 16 97/61 95 06/10/19 16:02 97.7 F 57 16 93/56 93 06/10/19 14:00 56 14 93/56 94 06/10/19 13:30 57 14 90/51 93 06/10/19 13:00 62 16 108/71 94 06/10/19 12:45 67 16 110/70 95 06/10/19 12:30 65 16 104/69 96 06/10/19 12:15 66 16 110/65 94 Intake and Output 06/10/19 06/11/19 06/11/19 23:59 07:59 15:59 Intake Total 440 / 839.9 100 / 100 Output Total 0 / 0 Balance 440 / 339.9 100 / 100 Intake: Oral 440 / 680 100 / 100 Output: Urine 0 / 0 Other: Meal Dinner Percent of Meal Consumed 100% # Voids 1 Weight 96.6 kg Patient Weight 06/11/19 23:59 Weight 96.6 kg General: Conversant, No Apparent Distress HEENT: Atraumatic, Normocephaly, Mucus Membranes Moist Neck: No JVD, Normal carotid pulses Cardiac: Reg Rate and Rhythm, Normal S1 and S2, No Murmur Lungs: Normal Breath Sounds, No Wheeze, Rales, Rhonchi Neuro: Alert and responsive, No focal deficits noted Abdomen: Soft, Non-Tender Skin: Other (right femoral access site healing well. No bleeding or hematoma. Mild ecchymosis.) Musculoskeletal: No Chest Wall Tenderness Extremities: No Clubbing, No Cyanosis, No Edema, Normal Pulses Results 06/11/19 05:38 06/11/19 05:38 Lab Results 06/10/19 06/11/19 06/11/19 16:58 05:38 05:38 WBC Hgb 13.7 13.0 Hct 40.2 38.5 Plt Count 193 Sodium Potassium Chloride Carbon Dioxide BUN 15 Creatinine 0.91 Glucose Calcium Troponin I 0.12 H* 06/11/19 06/11/19 05:38 05:38 WBC 7.4 Hgb 13.0 Hct 38.5 Plt Count 199 Sodium 137 Potassium 4.1 Chloride 104 Carbon Dioxide 23 BUN 14 Creatinine 0.89 Glucose 97 Calcium 8.6 Troponin I Short CBC 06/11/19 06/11/19 06/10/19 Range/Units 05:38 05:38 16:58 WBC 7.4 (4.3-11.1) K/mcL Hgb 13.0 13.0 13.7 (12.9-16.9) g/dL Hct 38.5 38.5 40.2 (37.5-50.1) % Plt Count 199 193 (140-400) K/mcL Neutrophils # 5.0 (1.6-8.9) K/mcL BMP 06/11/19 06/11/19 Range/Units 05:38 05:38 Sodium 137 (136-145) mEq/L Potassium 4.1 (3.5-5.1) mEq/L Chloride 104 (98-107) mEq/L Carbon Dioxide 23 (23-29) mEq/L BUN 14 15 (8-23) mg/dL Creatinine 0.89 0.91 (0.70-1.30) mg/dL Glucose 97 (70-105) mg/dL Calcium 8.6 (8.6-10.3) mg/dL Cardiac Enzymes 06/11/19 Range/Units 05:38 Troponin I 0.12 H* (< 0.04) ng/mL Impressions Chest X-Ray 06/09/19 07:51 IMPRESSION: Subsegmental atelectasis left lower lobe versus scarring. D/ / 06/09/2019 09:04:03 Jose Tinoco MD / Shelly Yañez Interpreting Provider: Jose Tinoco MD Active Medications Acetaminophen (Tylenol) 650 mg PO Q6HR PRN PRN Reason: Mild Pain/Fever Stop: 12/09/19 11:00 Last Admin: 06/10/19 16:31 Dose: 650 mg Documented by: Hydrocodone Bitart/Acetaminophen ([place] 5-325 Mg) 1 tab PO Q6HR PRN PRN Reason: Moderate Pain Stop: 12/09/19 11:00 Last Admin: 06/11/19 04:47 Dose: 1 tab Documented by: Albuterol Sulfate (Proventil Inhaler) 2 puff IH Q4HR PRN PRN Reason: Shortness Of Breath Stop: 12/09/19 11:01 Aspirin (Aspirin) 81 mg PO DAILY [facility] Stop: 12/11/19 09:01 Last Admin: 06/11/19 09:01 Dose: 81 mg Documented by: Atorvastatin Calcium (Lipitor) 80 mg PO HS [facility] Stop: 12/09/19 21:01 Last Admin: 06/10/19 20:41 Dose: 80 mg Documented by: Bupropion HCl (Wellbutrin Xl) 150 mg PO DAILY [facility] Stop: 12/09/19 14:16 Last Admin: 06/11/19 09:01 Dose: 150 mg Documented by: Citalopram Hydrobromide (Celexa) 40 mg PO HS [facility] Stop: 12/09/19 21:01 Last Admin: 06/10/19 20:40 Dose: 40 mg Documented by: Clopidogrel Bisulfate (Plavix) 75 mg PO DAILY [facility] Stop: 12/09/19 14:01 Last Admin: 06/11/19 09:01 Dose: 75 mg Documented by: Docusate Sodium (Colace) 100 mg PO BID PRN PRN Reason: Constipation Stop: 12/09/19 21:01 Isosorbide Mononitrate (Imdur) 30 mg PO DAILY [facility] Stop: 12/10/19 14:46 Last Admin: 06/11/19 09:01 Dose: Not Given Documented by: Lorazepam (Ativan) 2 mg PO TID PRN PRN Reason: Anxiety Last Admin: 06/11/19 09:04 Dose: 2 mg Documented by: Naloxone HCl (Narcan) 0.4 mg IVP Q2MPRN PRN PRN Reason: SEE COMMENTS Stop: 12/09/19 11:00 Ondansetron HCl (Zofran) 4 mg IVP Q8HR PRN PRN Reason: Nausea And Vomiting Stop: 12/09/19 11:00 - Imaging and Cardiology Echo: report reviewed Cardiac cath: report reviewed - EKG Interpretation EKG results cardiology: other (12 hr tele AVG HR 56, SR) Consult Discharge Plan - Plan Referrals: Gerardo Vasquez MD [Primary Care Provider] -
--- NOTE | 2019-06-11 10:52 | Urology Progress Note ---
<Mandy Mejias N - Last Filed: 06/11/19 10:50> Date of Encounter: 06/11/19 Time of Encounter: 09:30 - Assessment and Plan (1) Hematuria Status: Acute Assessment and plan: Patient is a 64-year-old male who presents status post greenlight PVP with Dr. Padron on 05/17/2019. Patient has been off anticoagulation since 05/28/2019. Patient presented with chest pain and underwent LHC. Patient has resumed DAPT and is noticing some pink tinged urine. I explained to the patient but if bleeding worsens or if he is having difficulty urinating, he may require catheterization. He is aware this will require an emergency department visit on the weekend. Patient will need an outpatient follow-up within 1-[address] Padron. I instructed patient to avoid heavy lifting, activity or straining. Qualifiers: Hematuria type: unspecified type Qualified Code(s): R31.9 - Hematuria, u nspecified (2) Benign prostatic hyperplasia with lower urinary tract symptoms Status: Acute Qualifiers: Lower urinary tract symptom detail: urinary frequency Qualified Code(s): N40.1 - Benign prostatic hyperplasia with lower urinary tract symptoms; R35.0 - Frequency of micturition Progress Note Narrative: Patient seen and examined sitting upright in bed and appears distress. Patient reports he is feeling very well after LHC. Patient reports voiding well without difficulty. He states urine is pink tinged, but he has not noticed any large clots. Objective Initial Vital Signs Temp Pulse Resp BP Pulse Ox 97.5 F L 57 18 97/75 100 06/09/19 07:50 06/09/19 07:50 06/09/19 07:50 06/09/19 07:50 06/09/19 07:50 - General physical appearance Present: no distress, no pain - Respiratory Present: normal expansion, normal respiratory effort - Abdomen Present: soft, non tender. Absent: distended - Integumentary Present: no rash, no abnormal pigmentation - Musculoskeletal Present: normal posture - Psychiatric Present: oriented to time, oriented to person, oriented to place, speech is normal, memory intact - Labs 06/11/19 05:38 06/11/19 05:38 Diabetes panel 06/11/19 06/11/19 Range/Units 05:38 05:38 Sodium 137 (136-145) mEq/L Potassium 4.1 (3.5-5.1) mEq/L Chloride 104 (98-107) mEq/L Carbon Dioxide 23 (23-29) mEq/L BUN 15 14 (8-23) mg/dL Creatinine 0.91 0.89 (0.70-1.30) mg/dL Glucose 97 (70-105) mg/dL Calcium 8.6 (8.6-10.3) mg/dL Calcium panel 06/11/19 Range/Units 05:38 Calcium 8.6 (8.6-10.3) mg/dL Pituitary panel 06/11/19 06/11/19 Range/Units 05:38 05:38 Sodium 137 (136-145) mEq/L Potassium 4.1 (3.5-5.1) mEq/L Chloride 104 (98-107) mEq/L Carbon Dioxide 23 (23-29) mEq/L BUN 15 14 (8-23) mg/dL Creatinine 0.91 0.89 (0.70-1.30) mg/dL Glucose 97 (70-105) mg/dL Calcium 8.6 (8.6-10.3) mg/dL Adrenal panel 06/11/19 06/11/19 Range/Units 05:38 05:38 Sodium 137 (136-145) mEq/L Potassium 4.1 (3.5-5.1) mEq/L Chloride 104 (98-107) mEq/L Carbon Dioxide 23 (23-29) mEq/L BUN 15 14 (8-23) mg/dL Creatinine 0.91 0.89 (0.70-1.30) mg/dL Glucose 97 (70-105) mg/dL Calcium 8.6 (8.6-10.3) mg/dL Consult Discharge Plan - Plan Instructions: Chest Pain (DC), Anxiety (DC) Referrals: Rozina Joseph MD [Non-Partnered Physician] - (office will call to schedule follow up in 1 week) Gerardo Vasquez MD [Primary Care Provider] - 06/18/19 7:30 am Mumtaz Padron MD [Partnered Physician] - 07/02/19 10:30 am Prescriptions: Aspirin [Lo-Dose Aspirin EC] 81 mg PO DAILY #30 tablet. Clopidogrel [Plavix] 75 mg PO DAILY #30 tablet <Humberto Bradshaw - Last Filed: 06/11/19 19:53> Date of Encounter: 06/11/19 Progress Note Narrative: Patient left before being seen Objective Initial Vital Signs Temp Pulse Resp BP Pulse Ox 97.5 F L 57 18 97/75 100 06/09/19 07:50 06/09/19 07:50 06/09/19 07:50 06/09/19 07:50 06/09/19 07:50 - Labs 06/11/19 05:38 06/11/19 05:38 Diabetes panel 06/11/19 06/11/19 Range/Units 05:38 05:38 Sodium 137 (136-145) mEq/L Potassium 4.1 (3.5-5.1) mEq/L Chloride 104 (98-107) mEq/L Carbon Dioxide 23 (23-29) mEq/L BUN 15 14 (8-23) mg/dL Creatinine 0.91 0.89 (0.70-1.30) mg/dL Glucose 97 (70-105) mg/dL Calcium 8.6 (8.6-10.3) mg/dL Calcium panel 06/11/19 Range/Units 05:38 Calcium 8.6 (8.6-10.3) mg/dL Pituitary panel 06/11/19 06/11/19 Range/Units 05:38 05:38 Sodium 137 (136-145) mEq/L Potassium 4.1 (3.5-5.1) mEq/L Chloride 104 (98-107) mEq/L Carbon Dioxide 23 (23-29) mEq/L BUN 15 14 (8-23) mg/dL Creatinine 0.91 0.89 (0.70-1.30) mg/dL Glucose 97 (70-105) mg/dL Calcium 8.6 (8.6-10.3) mg/dL Adrenal panel 06/11/19 06/11/19 Range/Units 05:38 05:38 Sodium 137 (136-145) mEq/L Potassium 4.1 (3.5-5.1) mEq/L Chloride 104 (98-107) mEq/L Carbon Dioxide 23 (23-29) mEq/L BUN 15 14 (8-23) mg/dL Creatinine 0.91 0.89 (0.70-1.30) mg/dL Glucose 97 (70-105) mg/dL Calcium 8.6 (8.6-10.3) mg/dL
--- NOTE | 2019-06-11 11:16 | Discharge Summary ---
- NOTES TO OUTPATIENT PROVIDER Notes to Outpatient Provider: f/u with PCP in one week. f/u with Cardiology in one week as scheduled. Please conitnue taking Aspirin and Plavix. Please f/u with Urology in 1-2 weeks. Please go to ER if you noticed worsening hematuria / blood in your urine. Date of Encounter: 06/11/19 Time of Encounter: 11:16 - Discharge Diagnosis (1) NSTEMI (non-ST elevated myocardial infarction) Priority: Primary Status: Acute (2) Chest pain Priority: Primary Status: Acute Qualifiers: Chest pain type: chest pain due to myocardial ischemia Ischemic chest pain type: unstable angina pectoris Qualified Code(s): I20.0 - Unstable angina (3) CAD (coronary artery disease) Priority: Secondary Status: Acute Qualifiers: Coronary Disease-Associated Artery/Lesion type: [place] artery [place] vs. transplanted heart: [place] heart Associated angina: with unstable angina Qualified Code(s): I25.110 - Atherosclerotic heart disease of [place] coronary artery with unstable angina pectoris (4) Benign prostatic hyperplasia with lower urinary tract symptoms Priority: Secondary Status: Acute Qualifiers: Lower urinary tract symptom detail: urinary frequency Qualified Code(s): N40.1 - Benign prostatic hyperplasia with lower urinary tract symptoms; R35.0 - Frequency of micturition (5) Hematuria Priority: Secondary Status: Acute Qualifiers: Hematuria type: unspecified type Qualified Code(s): R31.9 - Hematuria, unspecified (6) Anxiety Priority: Secondary Status: Acute (7) HLD (hyperlipidemia) Priority: Secondary Status: Acute Qualifiers: Hyperlipidemia type: unspecified Qualified Code(s): E78.5 - Hyperlipidemia, unspecified Hospital course: Mr. Garcia is a 64 year old male with a known past medical history of hypertension, hyperlipidemia, anxiety, depression, former smoker, CAD s/p CABG and PCI and prostate problem who recently had Green light photo vaporization of prostate for BPH on 05/17/19 now he presented to ER with left chest wall pain. Patient stated he developed chest pain this morning while he was driving. His pain located at left chest wall region radiating to his left neck and left arm associated with some nausea. He also complained about feeling weak and lethargic. His chest pain improved with sublingual Nitro and baby aspirin. He denied any active chest pain now. In the ER his initial troponin was negative. His EKG did not show any acute ischemic changes. Off note he stopped taking aspirin/Plavix since 05/28/19 since he developed hematuria after recent prostate greenlight PVP. He was admitted in the hospital and placed him on manager monitoring. His troponin trended up, peaked @ 0.39. He was started on Heparin gtt. He was evaluated by Cardiology who recommended LHC. However due to his recent prostate procedure complicated with hematuria, we asked Urologist to evaluate the pt. Urologist cleared him to go on DAPT therapy. Pt had LHC done y/d which showed severe three vessel CAD. EF 45%. Patient had successful PTCA in the mid LAD. S/P CABG 1 of 2 patent bypass grafts. Atretic velasco to lad. Previous stent in Left Anterior Descending with severe in-stent stenosis. At this point cardiology recommend to continue DAPT therapy. He did have some hematuria y/d after heparin gtt, today his hematuria seems to be slowly improving. Will d/c him home in stable condition today. - Time Spent with Patient Total time spent providing and/or coordinating discharge services: - Discharge Medications Prescriptions: Continued Albuterol Sulfate [Proventil Inhaler] 2 puff IH Q4HR PRN PRN Reason: Shortness Of Breath LORazepam [Lorazepam] 2 mg PO TID PRN PRN Reason: Anxiety Citalopram Hydrobromide [Citalopram HBr] 40 mg PO DAILY BuPROPion XL (24 HR) [Wellbutrin Xl] 150 mg PO DAILY Atorvastatin Calcium [Lipitor] 80 mg PO HS Docusate [Colace] 100 mg PO BID PRN PRN Reason: Constipation Aspirin [Lo-Dose Aspirin EC] 81 mg PO DAILY #30 tablet. Clopidogrel [Plavix] 75 mg PO DAILY #30 tablet Home Medications: Albuterol Sulfate [Proventil Inhaler] 2 puff IH Q4HR PRN 05/17/19 [History] Atorvastatin Calcium [Lipitor] 80 mg PO HS 05/17/19 [History] BuPROPion XL (24 HR) [Wellbutrin Xl] 150 mg PO DAILY 05/17/19 [History] Citalopram Hydrobromide [Citalopram HBr] 40 mg PO DAILY 05/17/19 [History] LORazepam [Lorazepam] 2 mg PO TID PRN 05/17/19 [History] Docusate [Colace] 100 mg PO BID PRN 06/10/19 [History] Aspirin [Lo-Dose Aspirin EC] 81 mg PO DAILY #30 tablet. 06/11/19 [Rx] Clopidogrel [Plavix] 75 mg PO DAILY #30 tablet 06/11/19 [Rx] Allergies/Adverse Reactions: Allergy/AdvReac Type Severity Reaction Status Date / Time amlodipine [From [facility]] AdvReac Dizziness Verified 06/09/19 16:53 nitroglycerin AdvReac Hypotension Verified 06/09/19 16:53 Date of admission: 06/10/19 15:00 Primary care physician: Gerardo Vasquez MD Consults: 06/09/19 09:31 Consult to Cardiology [CONS] Stat Comment: Consulting Provider: Cardiology [place] Reason for Consult: CP, h/o CAD Time Notified: 09:31 Call Completed: Yes 06/09/19 13:33 Consult to Urology [CONS] Routine Consulting Provider: Urology [place] Reason for Consult: Recent prostate procedure by Dr. Padron, now admitted with CP - may need [facility] .. Card recommended Urology consult Time Notified: 13:34 Call Completed: Yes 06/10/19 12:03 Consult to Cardiac Rehabilitation-Phase1 [CONS] Routine Comment: Reason for Consult: post op PCI Call Completed: Yes 06/10/19 12:04 Consult to Cardiac Rehabilitation-Phase1 [CONS] Routine Comment: Reason for Consult: post op PCI Call Completed: Yes - Constitutional Vitals: Temp Pulse Resp BP Pulse Ox 97.9 F 64 18 87/56 94 06/11/19 07:14 06/11/19 07:14 06/11/19 07:14 06/11/19 07:14 06/11/19 07:14 General appearance: Present: cooperative, A&O X 3, no acute distress Exam: Gen: Alert, awake, Oriented to time,place and person Chest: Diminished breath sounds B/L, No wheezing, No crackles, No rales Heart: S1S2+ RRR No murmurs Abd: Soft, NT, BS +, No organomegaly Ext: No edema, pulses are palpable, No calf tenderness Neuro : No acute focal neuro deficits noticed Skin: No rash. - Patient Status Disposition: Home, Self-Care Condition: Good Overall status at discharge: patient is back to baseline - Discharge Instructions Follow Up With: Gerardo Vasquez MD [Primary Care Provider] - Rozina Joseph MD [Non-Partnered Physician] - - Diet and Activity Activity: increase activity as tolerated Diet: low salt diet
[2019-06-11 11:56] VITALS: BP 92/52
== END 2019-06-11 14:40 | disposition home or self-care (01) | DRG 250 ==
LOC: EMEROOARM 07:47 → 3BNU 07:47 → SUATTDRO 10:41 → 3BNU 10:59
PROVIDERS: ADMIT Internal Medicine; ATTEND Family Medicine

== ENCOUNTER 2019-06-16 15:33 | Observation (INO) ==
[2019-06-16] MEDS ORDERED: 0.9 % Sodium Chloride 1,000 ML IVC ONE (15:42)
[2019-06-16] MEDS ORDERED: Piperacillin/Tazobactam 3.375 GM in 0.9 % Sodium Chloride Mini Bag 100 ML IVPB ONE (15:45)
[2019-06-16 15:53] LABS: Basophils % 0.3 %; Eosinophils # 0.3 K/mcL (0.0-0.6); Eosinophils % 2.1 %; Hematocrit 46.2 % (37.5-50.1); Immature Granulocytes % 0.4 % (0-4); Lymphocytes # 1.6 K/mcL (0.6-4.6); Lymphocytes % 10.6 %; Mean Corpuscular HGB Conc 33.8 g/dL (31.6-35.5); Mean Corpuscular Hemoglobin 31.9 pg (28.0-33.3); Mean Corpuscular Volume 94.5 fL (83.0-100.0); Mean Platelet Volume 9.3 fL (9.4-12.4); Monocytes # 0.7 K/mcL (0.0-1.3); Monocytes % 4.9 %; Neutrophils # 12.3 K/mcL (1.6-8.9); Platelet Count 212 K/mcL (140-400); Red Blood Count 4.89 M/mcL (4.19-5.50); Red Cell Distribution Width 13.2 % (11.5-14.5); Segmented Neutrophils % 81.7 %
[2019-06-16 15:54] LABS: Basophils # 0.1 K/mcL (0.0-0.2); Hemoglobin 15.6 g/dL (12.9-16.9)
[2019-06-16 16:01] LABS: INR 1.1
[2019-06-16 16:04] LABS: Activated Partial Thrombo Time 33.2 Seconds (26.0-36.0)
[2019-06-16] MEDS ORDERED: Isovue-370 500 ML BOTTLE IVP ONE ×2 (16:06→16:17)
[2019-06-16 16:15] LABS: Alanine Aminotransferase 33 Units/L (7-52); Albumin 4.3 g/dL (3.5-5.7); Albumin/Globulin Ratio 1.7 (1.1-2.2); Alkaline Phosphatase 106 Units/L (34-104); Aspartate Amino Transferase 17 Units/L (13-39); BUN/Creatinine Ratio 14 (6-26); Bilirubin,Direct 0.1 mg/dL (0.0-0.2); Bilirubin,Indirect 0.5 mg/dL (0.0-1.2); Bilirubin,Total 0.6 mg/dL (0.3-1.0); Blood Urea Nitrogen 13 mg/dL (8-23); Calcium 9.3 mg/dL (8.6-10.3); Carbon Dioxide 29 mEq/L (23-29); Chloride 101 mEq/L (98-107); Globulin 2.5 g/dL (2.4-3.5); Glucose 118 mg/dL (70-105); Magnesium 1.8 mg/dL (1.6-2.6); Osmolality,Calculated 285 (280-300); Phosphorous 2.3 mg/dL (2.7-4.5); Potassium 4.1 mEq/L (3.5-5.1); Sodium 137 mEq/L (136-145); Total Protein 6.8 g/dL (6.4-8.9); Troponin I < 0.03 ng/mL (< 0.04); eGFR For African Americans > 60 (> 60); eGFR For Non-African Americans > 60 (> 60)
[2019-06-16 16:38] LABS: Bilirubin,Urine Negative (Negative); Blood,Urine Large (Negative); Clarity,Urine Cloudy (Clear); Color,Urine Yellow (Yellow); Glucose,Urine (UA) Normal (Normal); Ketones,Urine Negative (Negative); Leukocyte Esterase,Urine Moderate (Negative); Nitrite,Urine Negative (Negative); Protein,Urine Trace mg/dL (Neg-Trace); Specific Gravity,Urine 1.021 (1.010-1.025); Urobilinogen,Urine Normal (Normal)
[2019-06-16 16:40] LABS: Bacteria,Urine None Seen per hpf (None-Few); Hyaline Casts,Urine None Seen per lpf (None-Few); RBC,Urine TNTC per hpf (0-3); Squamous Epithelial Cell,Urine Many per lpf (None-Few); WBC,Urine 50-100 per hpf (0-3)
[2019-06-16] MEDS ORDERED: Ondansetron 4 MG/2 ML VIAL IVP ONE (18:02)
[2019-06-16] MEDS ORDERED: Ibuprofen 800 MG TABLET PO ONE (18:02)
[2019-06-16] MEDS ORDERED: Lidocaine -MPF 1% 2 ML VIAL ONE (18:55)
[2019-06-16] MEDS ORDERED: Ondansetron 4 MG/2 ML VIAL IVP PRN (20:06)
[2019-06-16] MEDS ORDERED: Naloxone 0.4 MG/ML INJ IVP PRN (20:06)
[2019-06-16] MEDS ORDERED: 0.9 % Sodium Chloride 1,000 ML IVC SCH (20:15)
[2019-06-16] MEDS: *HR* LORazepam 1 MG TABLET PO PRN (22:56)
[2019-06-17] MEDS: Piperacillin/Tazobactam 3.375 GM in 0.9 % Sodium Chloride Mini Bag 100 ML IVPB SCH ×3 (00:47→18:12)
[2019-06-17 05:11] LABS: Basophils % 0.3 %; Eosinophils # 0.3 K/mcL (0.0-0.6); Eosinophils % 1.8 %; Hematocrit 38.3 % (37.5-50.1); Immature Granulocytes % 0.5 % (0-4); Lymphocytes # 1.7 K/mcL (0.6-4.6); Lymphocytes % 11.4 %; Mean Corpuscular HGB Conc 34.7 g/dL (31.6-35.5); Mean Corpuscular Hemoglobin 32.3 pg (28.0-33.3); Mean Platelet Volume 9.2 fL (9.4-12.4); Monocytes # 1.6 K/mcL (0.0-1.3); Monocytes % 10.4 %; Neutrophils # 11.4 K/mcL (1.6-8.9); Platelet Count 167 K/mcL (140-400); Red Blood Count 4.12 M/mcL (4.19-5.50); Red Cell Distribution Width 13.2 % (11.5-14.5); Segmented Neutrophils % 75.6 %
[2019-06-17 05:15] LABS: Hemoglobin 13.3 g/dL (12.9-16.9)
[2019-06-17 05:32] LABS: Alanine Aminotransferase 22 Units/L (7-52); Albumin 3.2 g/dL (3.5-5.7); Albumin/Globulin Ratio 1.6 (1.1-2.2); Alkaline Phosphatase 74 Units/L (34-104); Aspartate Amino Transferase 12 Units/L (13-39); BUN/Creatinine Ratio 17 (6-26); Bilirubin,Total 1.1 mg/dL (0.3-1.0); Blood Urea Nitrogen 15 mg/dL (8-23); Calcium 8.2 mg/dL (8.6-10.3); Carbon Dioxide 23 mEq/L (23-29); Chloride 110 mEq/L (98-107); Glucose 104 mg/dL (70-105); Osmolality,Calculated 289 (280-300); Potassium 3.9 mEq/L (3.5-5.1); Sodium 139 mEq/L (136-145); Total Protein 5.2 g/dL (6.4-8.9); eGFR For African Americans > 60 (> 60); eGFR For Non-African Americans > 60 (> 60)
[2019-06-17] MEDS: BuPROPion XL (24 HR) 150 MG TABLET PO SCH (09:10)
[2019-06-17] MEDS: Aspirin Enteric Coated 81 MG Tablet PO SCH (09:10)
[2019-06-17] MEDS: *HR* LORazepam 1 MG TABLET PO PRN ×2 (09:27→20:00)
[2019-06-17] MEDS: *HR* HYDROcodone/Acet 5/325 mg TABLET PO PRN (19:53)
[2019-06-18] MEDS: Piperacillin/Tazobactam 3.375 GM in 0.9 % Sodium Chloride Mini Bag 100 ML IVPB SCH ×2 (01:00→09:10)
[2019-06-18 05:24] LABS: Basophils % 0.3 %; Eosinophils # 0.3 K/mcL (0.0-0.6); Eosinophils % 2.3 %; Hematocrit 40.5 % (37.5-50.1); Hemoglobin 13.5 g/dL (12.9-16.9); Immature Granulocytes % 0.5 % (0-4); Lymphocytes # 1.8 K/mcL (0.6-4.6); Lymphocytes % 12.9 %; Mean Corpuscular HGB Conc 33.3 g/dL (31.6-35.5); Mean Corpuscular Hemoglobin 31.8 pg (28.0-33.3); Mean Corpuscular Volume 95.3 fL (83.0-100.0); Mean Platelet Volume 9.6 fL (9.4-12.4); Monocytes # 1.4 K/mcL (0.0-1.3); Monocytes % 9.9 %; Neutrophils # 10.2 K/mcL (1.6-8.9); Platelet Count 180 K/mcL (140-400); Red Blood Count 4.25 M/mcL (4.19-5.50); Red Cell Distribution Width 13.2 % (11.5-14.5); Segmented Neutrophils % 74.1 %; White Blood Count 13.8 K/mcL (4.3-11.1)
[2019-06-18 05:41] LABS: BUN/Creatinine Ratio 13 (6-26); Blood Urea Nitrogen 10 mg/dL (8-23); Calcium 8.6 mg/dL (8.6-10.3); Carbon Dioxide 23 mEq/L (23-29); Chloride 107 mEq/L (98-107); Glucose 104 mg/dL (70-105); Osmolality,Calculated 281 (280-300); Potassium 3.8 mEq/L (3.5-5.1); Sodium 136 mEq/L (136-145); eGFR For African Americans > 60 (> 60); eGFR For Non-African Americans > 60 (> 60)
[2019-06-18] MEDS: *HR* HYDROcodone/Acet 5/325 mg TABLET PO PRN (06:07)
[2019-06-18] MEDS: Aspirin Enteric Coated 81 MG Tablet PO SCH (09:11)
[2019-06-18] MEDS: BuPROPion XL (24 HR) 150 MG TABLET PO SCH (09:11)
[2019-06-18] MEDS: *HR* LORazepam 1 MG TABLET PO PRN (09:31)
[2019-06-18 11:22] VITALS: BP 104/62
[2019-06-18] MEDS ORDERED: Aminoglycoside Consult 1 EACH MC ONE (13:51)
== END 2019-06-18 13:52 | disposition home or self-care (01) ==
LOC: EMEROOARM 15:33 → 3ANU 15:33 → SUATTDRO 18:40 → 3ANU 20:10
PROVIDERS: ADMIT Internal Medicine; ATTEND Internal Medicine

== ENCOUNTER 2019-06-19 22:19 | Observation (INO) ==
[2019-06-19 22:43] LABS: Basophils % 0.2 %; Eosinophils # 0.3 K/mcL (0.0-0.6); Eosinophils % 1.7 %; Hemoglobin 14.5 g/dL (12.9-16.9); Immature Granulocytes % 0.5 % (0-4); Lymphocytes # 1.4 K/mcL (0.6-4.6); Lymphocytes % 9.1 %; Mean Corpuscular HGB Conc 34.5 g/dL (31.6-35.5); Mean Corpuscular Hemoglobin 31.7 pg (28.0-33.3); Mean Corpuscular Volume 91.7 fL (83.0-100.0); Mean Platelet Volume 9.2 fL (9.4-12.4); Monocytes # 1.3 K/mcL (0.0-1.3); Monocytes % 8.7 %; Platelet Count 214 K/mcL (140-400); Red Blood Count 4.58 M/mcL (4.19-5.50); Red Cell Distribution Width 12.8 % (11.5-14.5); Segmented Neutrophils % 79.8 %; White Blood Count 15.1 K/mcL (4.3-11.1)
[2019-06-19 23:05] LABS: BUN/Creatinine Ratio 16 (6-26); Blood Urea Nitrogen 13 mg/dL (8-23); Calcium 9.1 mg/dL (8.6-10.3); Carbon Dioxide 21 mEq/L (23-29); Chloride 104 mEq/L (98-107); Glucose 131 mg/dL (70-105); Osmolality,Calculated 276 (280-300); Potassium 3.8 mEq/L (3.5-5.1); Sodium 132 mEq/L (136-145); eGFR For African Americans > 60 (> 60); eGFR For Non-African Americans > 60 (> 60)
[2019-06-19 23:06] LABS: Troponin I < 0.03 ng/mL (< 0.04)
[2019-06-19] MEDS ORDERED: 0.9 % Sodium Chloride 500 ML IVC ONE (23:36)
[2019-06-19] MEDS ORDERED: *HR* FentaNYL (PF) 100 MCG/2 ML VIAL IVP ONE (23:36)
[2019-06-19] MEDS ORDERED: Heparin 25,000 UNIT/250 ML D5W 25,000 UNIT/250 ML IV.SOLN IVC SCH (23:45)
[2019-06-19] MEDS ORDERED: *HR* Heparin 5,000 UNIT/ML VIAL IVP PRN ×2 (23:47)
[2019-06-19] MEDS ORDERED: *HR* Heparin 5,000 UNIT/ML VIAL IVP ONE (23:47)
[2019-06-19] MEDS ORDERED: Aspirin 325 MG TABLET PO ONE (23:48)
[2019-06-20 00:25] LABS: Hematocrit 39.8 % (37.5-50.1); Hemoglobin 13.5 g/dL (12.9-16.9); Mean Corpuscular HGB Conc 33.9 g/dL (31.6-35.5); Mean Corpuscular Hemoglobin 31.8 pg (28.0-33.3); Mean Corpuscular Volume 93.6 fL (83.0-100.0); Mean Platelet Volume 9.3 fL (9.4-12.4); Platelet Count 207 K/mcL (140-400); Red Blood Count 4.25 M/mcL (4.19-5.50); White Blood Count 13.5 K/mcL (4.3-11.1)
[2019-06-20 00:33] LABS: Heparin anti-factor XA UFH 0.01 IU/mL (0.30-0.70)
[2019-06-20 00:34] LABS: INR 1.2; Prothrombin Time 13.7 Seconds (9.4-12.1)
[2019-06-20] MEDS ORDERED: Naloxone 0.4 MG/ML INJ IVP PRN (02:14)
[2019-06-20] MEDS ORDERED: 0.9 % Sodium Chloride 1,000 ML IVC SCH (02:15)
[2019-06-20] MEDS ORDERED: Nitroglycerin 0.4 MG TAB.SUBL SL PRN (02:59)
[2019-06-20] MEDS: Morphine Sulfate 2 MG/ML SYRINGE IVP PRN ×2 (03:42→06:19)
[2019-06-20 06:52] LABS: Alanine Aminotransferase 16 Units/L (7-52); Albumin 3.6 g/dL (3.5-5.7); Albumin/Globulin Ratio 1.4 (1.1-2.2); Alkaline Phosphatase 65 Units/L (34-104); Aspartate Amino Transferase 11 Units/L (13-39); BUN/Creatinine Ratio 15 (6-26); Bilirubin,Total 0.9 mg/dL (0.3-1.0); Blood Urea Nitrogen 12 mg/dL (8-23); Calcium 8.5 mg/dL (8.6-10.3); Carbon Dioxide 22 mEq/L (23-29); Chloride 103 mEq/L (98-107); Globulin 2.5 g/dL (2.4-3.5); Glucose 90 mg/dL (70-105); Osmolality,Calculated 277 (280-300); Potassium 3.9 mEq/L (3.5-5.1); Sodium 134 mEq/L (136-145); Total Protein 6.1 g/dL (6.4-8.9); Troponin I < 0.03 ng/mL (< 0.04); eGFR For African Americans > 60 (> 60); eGFR For Non-African Americans > 60 (> 60)
[2019-06-20] MEDS ORDERED: GI Cocktail 40 ML EACH PO ONE (09:33)
[2019-06-20] MEDS: Aspirin Enteric Coated 81 MG Tablet PO SCH (10:15)
[2019-06-20] MEDS: *HR* LORazepam 1 MG TABLET PO PRN ×2 (11:51→20:43)
[2019-06-20] MEDS: BuPROPion XL (24 HR) 150 MG TABLET PO SCH (11:51)
[2019-06-21 07:45] VITALS: BP 94/66
[2019-06-21] MEDS: Aspirin Enteric Coated 81 MG Tablet PO SCH (08:41)
[2019-06-21] MEDS: BuPROPion XL (24 HR) 150 MG TABLET PO SCH (08:41)
[2019-06-21] MEDS: *HR* LORazepam 1 MG TABLET PO PRN (08:45)
== END 2019-06-21 14:30 | disposition home health service (06) ==
LOC: 2NENU 22:19 → EMEROOARM 22:19 → SUATTDRO 06-20 00:37 → 2NENU 06-20 01:15
PROVIDERS: ADMIT Internal Medicine; ATTEND Internal Medicine

== ENCOUNTER 2019-09-21 17:29 | Observation (INO) ==
[2019-09-21] MEDS ORDERED: Aspirin 81 MG TAB.CHEW PO ONE (19:01)
[2019-09-21 19:30] LABS: Basophils % 0.5 %; Eosinophils # 0.2 K/mcL (0.0-0.6); Eosinophils % 2.6 %; Hematocrit 42.9 % (37.5-50.1); Hemoglobin 14.6 g/dL (12.9-16.9); Immature Granulocytes % 0.2 % (0-4); Lymphocytes # 2.1 K/mcL (0.6-4.6); Lymphocytes % 25.6 %; Mean Corpuscular Hemoglobin 31.5 pg (28.0-33.3); Mean Corpuscular Volume 92.7 fL (83.0-100.0); Mean Platelet Volume 9.6 fL (9.4-12.4); Monocytes # 0.7 K/mcL (0.0-1.3); Neutrophils # 5.1 K/mcL (1.6-8.9); Platelet Count 194 K/mcL (140-400); Red Blood Count 4.63 M/mcL (4.19-5.50); Red Cell Distribution Width 13.4 % (11.5-14.5); Segmented Neutrophils % 62.1 %; White Blood Count 8.2 K/mcL (4.3-11.1)
[2019-09-21 20:07] LABS: BUN/Creatinine Ratio 20 (6-26); Blood Urea Nitrogen 17 mg/dL (8-23); Calcium 9.2 mg/dL (8.6-10.3); Carbon Dioxide 23 mEq/L (23-29); Chloride 106 mEq/L (98-107); Glucose 110 mg/dL (70-105); Osmolality,Calculated 288 (280-300); Potassium 3.9 mEq/L (3.5-5.1); Sodium 138 mEq/L (136-145); Troponin I 0.37 ng/mL (< 0.04); eGFR For African Americans > 60 (> 60); eGFR For Non-African Americans > 60 (> 60)
[2019-09-21] MEDS ORDERED: *HR* Heparin 5,000 UNIT/ML VIAL IVP ONE (20:23)
[2019-09-21] MEDS ORDERED: *HR* Heparin 5,000 UNIT/ML VIAL IVP PRN (20:23)
[2019-09-21] MEDS ORDERED: 0.9 % Sodium Chloride 1,000 ML IVC ONE (20:25)
[2019-09-21] MEDS: Heparin 25,000 UNIT/250 ML D5W 25,000 UNIT/250 ML IV.SOLN IVC SCH (20:48)
[2019-09-21 20:55] LABS: Hematocrit 40.3 % (37.5-50.1); Hemoglobin 14.7 g/dL (12.9-16.9); Mean Corpuscular HGB Conc 36.5 g/dL (31.6-35.5); Mean Corpuscular Hemoglobin 32.5 pg (28.0-33.3); Mean Platelet Volume 9.2 fL (9.4-12.4); Platelet Count 185 K/mcL (140-400); Red Blood Count 4.53 M/mcL (4.19-5.50); Red Cell Distribution Width 13.4 % (11.5-14.5); White Blood Count 7.7 K/mcL (4.3-11.1)
[2019-09-21 20:59] LABS: Prothrombin Time 11.9 Seconds (9.4-12.1)
[2019-09-21] MEDS ORDERED: Nitroglycerin 0.4 MG TAB.SUBL SL PRN (22:34)
[2019-09-22 01:03] LABS: Basophils % 0.6 %; Eosinophils # 0.3 K/mcL (0.0-0.6); Eosinophils % 3.9 %; Hematocrit 39.5 % (37.5-50.1); Hemoglobin 13.8 g/dL (12.9-16.9); Immature Granulocytes % 0.1 % (0-4); Lymphocytes # 2.6 K/mcL (0.6-4.6); Lymphocytes % 36.9 %; Mean Corpuscular HGB Conc 34.9 g/dL (31.6-35.5); Mean Corpuscular Hemoglobin 32.3 pg (28.0-33.3); Mean Corpuscular Volume 92.5 fL (83.0-100.0); Mean Platelet Volume 9.6 fL (9.4-12.4); Monocytes # 0.6 K/mcL (0.0-1.3); Monocytes % 9.1 %; Neutrophils # 3.4 K/mcL (1.6-8.9); Platelet Count 176 K/mcL (140-400); Red Blood Count 4.27 M/mcL (4.19-5.50); Red Cell Distribution Width 13.4 % (11.5-14.5); Segmented Neutrophils % 49.4 %; White Blood Count 6.9 K/mcL (4.3-11.1)
[2019-09-22 01:26] LABS: Alanine Aminotransferase 25 Units/L (7-52); Albumin 3.6 g/dL (3.5-5.7); Albumin/Globulin Ratio 1.8 (1.1-2.2); Alkaline Phosphatase 72 Units/L (34-104); Aspartate Amino Transferase 19 Units/L (13-39); BUN/Creatinine Ratio 22 (6-26); Bilirubin,Total 0.8 mg/dL (0.3-1.0); Blood Urea Nitrogen 17 mg/dL (8-23); Calcium 8.4 mg/dL (8.6-10.3); Carbon Dioxide 21 mEq/L (23-29); Chloride 107 mEq/L (98-107); Chol/HDL Ratio 3.2 (0-4.9); Cholesterol 87 mg/dL (< 200); Glucose 79 mg/dL (70-105); HDL Cholesterol 27 mg/dL (40-59); LDL Cholesterol,Calculated 50 mg/dL (0-99); Osmolality,Calculated 286 (280-300); Potassium 3.7 mEq/L (3.5-5.1); Sodium 138 mEq/L (136-145); Total Protein 5.6 g/dL (6.4-8.9); Triglycerides 50 mg/dL (< 150); eGFR For African Americans > 60 (> 60); eGFR For Non-African Americans > 60 (> 60)
[2019-09-22 01:30] LABS: Troponin I 0.23 ng/mL (< 0.04)
[2019-09-22 01:42] LABS: Thyroid Stimulating Hormone 4.751 mcIU/mL (0.340-5.600)
[2019-09-22] MEDS: *HR* LORazepam 1 MG TABLET PO PRN ×3 (02:13→20:57)
[2019-09-22] MEDS: *HR* Heparin 5,000 UNIT/ML VIAL IVP PRN ×2 (03:39→19:42)
[2019-09-22] MEDS ORDERED: Nitroglycerin 0.4 MG TAB.SUBL SL PRN (06:30)
[2019-09-22 07:21] LABS: Estimated Average Glucose 128 mg/dl
[2019-09-22] MEDS: BuPROPion SR (12 HR) 150 MG TABLET PO SCH (10:37)
[2019-09-22] MEDS: Aspirin Enteric Coated 81 MG Tablet PO SCH (10:37)
[2019-09-22] MEDS: Heparin 25,000 UNIT/250 ML D5W 25,000 UNIT/250 ML IV.SOLN IVC SCH (17:28)
[2019-09-23] MEDS: Nitroglycerin 0.4 MG TAB.SUBL SL SCH ×3 (03:36→03:38)
[2019-09-23] MEDS: BuPROPion SR (12 HR) 150 MG TABLET PO SCH (08:04)
[2019-09-23] MEDS: Aspirin Enteric Coated 81 MG Tablet PO SCH (08:04)
[2019-09-23] MEDS: *HR* LORazepam 1 MG TABLET PO PRN (08:04)
[2019-09-23 09:32] LABS: Basophils % 0.5 %; Eosinophils # 0.2 K/mcL (0.0-0.6); Eosinophils % 3.3 %; Hematocrit 41.2 % (37.5-50.1); Hemoglobin 14.8 g/dL (12.9-16.9); Immature Granulocytes % 0.2 % (0-4); Lymphocytes # 1.9 K/mcL (0.6-4.6); Lymphocytes % 28.4 %; Mean Corpuscular HGB Conc 35.9 g/dL (31.6-35.5); Mean Corpuscular Hemoglobin 32.2 pg (28.0-33.3); Mean Corpuscular Volume 89.8 fL (83.0-100.0); Mean Platelet Volume 9.2 fL (9.4-12.4); Monocytes # 0.6 K/mcL (0.0-1.3); Monocytes % 8.4 %; Neutrophils # 3.9 K/mcL (1.6-8.9); Platelet Count 181 K/mcL (140-400); Red Blood Count 4.59 M/mcL (4.19-5.50); Red Cell Distribution Width 13.4 % (11.5-14.5); Segmented Neutrophils % 59.2 %; White Blood Count 6.7 K/mcL (4.3-11.1)
[2019-09-23 09:57] LABS: Alanine Aminotransferase 24 Units/L (7-52); Albumin 3.8 g/dL (3.5-5.7); Albumin/Globulin Ratio 1.8 (1.1-2.2); Alkaline Phosphatase 75 Units/L (34-104); Aspartate Amino Transferase 19 Units/L (13-39); BUN/Creatinine Ratio 17 (6-26); Bilirubin,Total 0.9 mg/dL (0.3-1.0); Blood Urea Nitrogen 15 mg/dL (8-23); Carbon Dioxide 24 mEq/L (23-29); Chloride 108 mEq/L (98-107); Globulin 2.1 g/dL (2.4-3.5); Glucose 101 mg/dL (70-105); Osmolality,Calculated 285 (280-300); Potassium 4.1 mEq/L (3.5-5.1); Sodium 137 mEq/L (136-145); Total Protein 5.9 g/dL (6.4-8.9); eGFR For African Americans > 60 (> 60); eGFR For Non-African Americans > 60 (> 60)
[2019-09-23 13:08] VITALS: BP 101/66
[2019-09-23] MEDS ORDERED: Ranolazine 500 MG TAB.ER.12H PO SCH (21:00)
== END 2019-09-23 16:32 | disposition home or self-care (01) ==
LOC: EMEROOARM 17:29 → 2NENU 17:29
PROVIDERS: ADMIT Internal Medicine; ATTEND Internal Medicine

== ENCOUNTER 2021-09-20 11:44 | Inpatient (IN) ==
[2021-09-20 12:25] LABS: Basophils % 0.4 %; Eosinophils # 0.2 K/mcL (0.0-0.6); Eosinophils % 3.2 %; Hematocrit 39.7 % (37.5-50.1); Immature Granulocytes % 0.4 % (0-4); Lymphocytes # 1.6 K/mcL (0.6-4.6); Lymphocytes % 30.1 %; Mean Corpuscular HGB Conc 35.3 g/dL (31.6-35.5); Mean Corpuscular Hemoglobin 32.6 pg (28.0-33.3); Mean Corpuscular Volume 92.3 fL (83.0-100.0); Mean Platelet Volume 9.7 fL (9.4-12.4); Monocytes # 0.5 K/mcL (0.0-1.3); Monocytes % 9.7 %; Platelet Count 262 K/mcL (140-400); Red Cell Distribution Width 12.8 % (11.5-14.5); Segmented Neutrophils % 56.2 %; White Blood Count 5.4 K/mcL (4.3-11.1)
[2021-09-20 12:32] LABS: INR 1.2; Prothrombin Time 13.6 Seconds (9.4-12.1)
[2021-09-20 12:35] LABS: Activated Partial Thrombo Time 32.5 Seconds (26.0-36.0)
[2021-09-20 12:39] LABS: BUN/Creatinine Ratio 18 (6-26); Blood Urea Nitrogen 15 mg/dL (8-23); Calcium 8.9 mg/dL (8.6-10.3); Carbon Dioxide 28 mEq/L (23-29); Chloride 105 mEq/L (98-107); Glucose 92 mg/dL (70-105); Osmolality,Calculated 284 (280-300); Sodium 137 mEq/L (136-145); Troponin I < 0.03 ng/mL (< 0.04); eGFR For African Americans > 60 (> 60); eGFR For Non-African Americans > 60 (> 60)
[2021-09-20] MEDS ORDERED: 0.9 % Sodium Chloride 1,000 ML IVC ONE (13:54)
[2021-09-20] MEDS ORDERED: Aspirin 81 MG TAB.CHEW PO ONE (14:08)
[2021-09-20] MEDS ORDERED: Ondansetron 4 MG/2 ML VIAL IVP PRN (14:50)
[2021-09-20] MEDS ORDERED: Acetaminophen 325 MG TABLET PO PRN (14:50)
[2021-09-20] MEDS ORDERED: *HR* Heparin 5,000 UNIT/ML VIAL IVP ONE (17:41)
[2021-09-20] MEDS ORDERED: *HR* Heparin 5,000 UNIT/ML VIAL IVP PRN ×2 (17:41)
[2021-09-20 18:27] LABS: Heparin anti-factor XA UFH < 0.04 IU/mL (0.30-0.70)
[2021-09-20 18:28] LABS: INR 1.2; Prothrombin Time 12.9 Seconds (9.4-12.1)
[2021-09-20] MEDS: Heparin 25,000UNIT/250ML 1/2NS 25,000 UNIT/250 ML IV.SOLN IVC SCH (19:48)
[2021-09-20] MEDS: Ranolazine 500 MG TAB.ER.12H PO SCH (20:07)
[2021-09-20 21:23] LABS: Hematocrit 38.2 % (37.5-50.1); Mean Corpuscular Hemoglobin 30.9 pg (28.0-33.3); Mean Corpuscular Volume 90.7 fL (83.0-100.0); Mean Platelet Volume 9.6 fL (9.4-12.4); Platelet Count 225 K/mcL (140-400); Red Blood Count 4.21 M/mcL (4.19-5.50); Red Cell Distribution Width 12.7 % (11.5-14.5); White Blood Count 5.6 K/mcL (4.3-11.1)
[2021-09-20] MEDS: *HR* LORazepam 1 MG TABLET PO PRN (22:18)
[2021-09-21 02:26] LABS: Hematocrit 37.3 % (37.5-50.1); Hemoglobin 12.7 g/dL (12.9-16.9); Mean Corpuscular Hemoglobin 31.2 pg (28.0-33.3); Mean Corpuscular Volume 91.6 fL (83.0-100.0); Mean Platelet Volume 9.7 fL (9.4-12.4); Platelet Count 223 K/mcL (140-400); Red Blood Count 4.07 M/mcL (4.19-5.50); Red Cell Distribution Width 12.7 % (11.5-14.5); White Blood Count 5.6 K/mcL (4.3-11.1)
[2021-09-21 02:44] LABS: BUN/Creatinine Ratio 14 (6-26); Blood Urea Nitrogen 13 mg/dL (8-23); Calcium 8.4 mg/dL (8.6-10.3); Carbon Dioxide 26 mEq/L (23-29); Chloride 108 mEq/L (98-107); Glucose 166 mg/dL (70-105); Osmolality,Calculated 292 (280-300); Potassium 3.6 mEq/L (3.5-5.1); Sodium 139 mEq/L (136-145); eGFR For African Americans > 60 (> 60); eGFR For Non-African Americans > 60 (> 60)
[2021-09-21] MEDS ORDERED: *HR* Enoxaparin 40 MG/0.4 ML SYRINGE SQ SCH (06:00)
[2021-09-21] MEDS: BuPROPion SR (12 HR) 150 MG TABLET PO SCH (09:04)
[2021-09-21] MEDS: Ranolazine 500 MG TAB.ER.12H PO SCH ×2 (09:04→20:26)
[2021-09-21] MEDS: Aspirin 81 MG TAB.CHEW PO SCH (09:04)
[2021-09-21] MEDS: Cyanocobalamin (B-12) 1,000 MCG TABLET PO SCH (09:04)
[2021-09-21 09:14] LABS: Hematocrit 38.8 % (37.5-50.1); Hemoglobin 13.3 g/dL (12.9-16.9)
[2021-09-21] MEDS: Heparin 25,000UNIT/250ML 1/2NS 25,000 UNIT/250 ML IV.SOLN IVC SCH (17:11)
[2021-09-21] MEDS: *HR* LORazepam 1 MG TABLET PO PRN (20:26)
[2021-09-22] MEDS: BuPROPion SR (12 HR) 150 MG TABLET PO SCH (07:44)
[2021-09-22] MEDS: Cyanocobalamin (B-12) 1,000 MCG TABLET PO SCH (07:44)
[2021-09-22] MEDS: Aspirin 81 MG TAB.CHEW PO SCH (07:45)
[2021-09-22] MEDS: Ranolazine 500 MG TAB.ER.12H PO SCH (07:45)
[2021-09-22 11:37] VITALS: BP 111/68; PULSE 54; TEMP 97.8; O2SAT 96
== END 2021-09-22 13:46 | disposition home or self-care (01) | DRG 280 ==
LOC: EMEROOARM 11:44 → 3BNU 11:44
PROVIDERS: ADMIT Internal Medicine; ATTEND Internal Medicine